=== PATIENT | female | born 1945 | race Caucasian/White ===

== ENCOUNTER 2017-08-13 08:50 | Day surgery (SDC) | payer MEDICARE, OTHER, SELFPAY ==
[2017-08-11 10:26] VITALS: BP 151/76; PULSE 57; RESP 16; TEMP 36.5; O2SAT 99; BMI 22.6
--- NOTE | 2017-08-11 10:45 | SDCEKG_ITS ---
Test Reason : Blood Pressure : / mmHG Vent. Rate : 057 BPM Atrial Rate : 057 BPM P-R Int : 164 ms QRS Dur : 084 ms QT Int : 446 ms P-R-T Axes : 055 047 044 degrees QTc Int : 434 ms Sinus bradycardia Possible Left atrial enlargement Borderline ECG Confirmed by JODI MEEHAN, SAPPHIRE ([id number]), web editor ANGELA MCKEON ([id number]) on 08/12/2017 9:09:19 AM Referred By: Awilda Gamez Confirmed By:SAPPHIRE ZAPATA MD
[2017-08-11 11:52] LABS: Anion Gap 4 (5-15); BUN 16 mg/dL (7-18); BUN/Creat Ratio 22.9 RATIO (10-20); Calcium,Total 8.8 mg/dL (8.5-10.1); Chloride 103 mmol/L (98-107); EST Glomerular Filtration Rate 88 mL/min (>60); Est Glom Filt Rate - Afr Amer 106 mL/min (>60); Estimated Creatinine Clearance 42.06 ml/min; Glucose 95 mg/dL (74-106); Potassium 3.8 mmol/L (3.5-5.1); Sodium Level 139 mmol/L (136-145); Thyroid Stim Hormone (TSH) 1.51 uIU/mL (0.358-3.74)
[2017-08-13] VITALS (9 sets, daily range): BP systolic 97–157; BP diastolic 50–72; PULSE 45–70; RESP 16–18; TEMP 36.1–36.8; O2SAT 91–100; BMI 22.6
--- NOTE | 2017-08-13 | HYST_PTH ---
PATIENT: JAKI VIVAS [place] [facility] [id number] AGE/SX: 72/F ROOM: RE08/13/[address]: Dr. Awilda aGmez MD : [id number] BED: DIS: 08/13/2017 SPEC #: [id number] RECD: 08/13/17 14:43 STATUS: PK REMoshe #: [id number] NADER: 08/13/17 00:[address]: Awilda Gamez DEPT: SURGICAL PATHOLOGY RECD BY: Ant Urban ENTERED: 08/13/17 14:43 SP TYPE: HYSTERECT OTHR DR: MD Dr. Chantal Rao MD Tissues: Uterus, NOS Procedures: Surgery Specimen Level V HEADER OPERATION: Anterior and posterior repair; vaginal hysterectomy, salpingectomy PRE-OP DIAGNOSIS: Mixed incontinence, cystocele and rectocele with incomplete uterovaginal prolapse TISSUE SUBMITTED: Uterus, bilateral fallopian tubes, cervix MICROSCOPIC DIAGNOSIS Uterus, hysterectomy: Cervix ? nabothian cysts and mild chronic inflammation. Endometrium ? inactive endometrium with cystic change. Myometrium ? leiomyoma with hyalinization. Focal adenomyosis. Right and left fallopian tubes ? benign paratubal cyst. AM:amari 08/16/17 MICROSCOPIC DESCRIPTION Slides are reviewed. GROSS DESCRIPTION Received in fixative is one container labeled with the patient's name and designated uterus, bilateral fallopian tubes and cervix. The specimen consists of a hysterectomy specimen consisting of uterus with cervix and detached bilateral fallopian tubes. The uterus with cervix weighs 77 gm and measures 9 x 5.5 x 4 cm. The serosal surface is oneal, glistening. The ectocervical mucosa is unremarkable. The external os is stenotic. The endocervical canal measures 3 cm in length and the endocervical mucosa is unremarkable. The triangular endometrial cavity measures 5 cm in length and up to 4 cm in width. The endometrium is oneal, glistening without any mass lesion and measures 0.1 cm in thickness. Sections of the uterine wall reveal a submucosal to intramural nodular mass measuring 3.5 x 3 x 2.5 cm. Sections of this mass reveals oneal whorled cut surfaces without areas of hemorrhage, necrosis or cystic degeneration. The uninvolved uterine wall measures up to 1.5 cm in thickness. The fallopian tubes are not identified as right or left. One of the fallopian tubes measure 4 cm in length and 0.7 cm in diameter. The second fallopian tube measures 5 cm in length and 0.5 cm in diameter. Fimbrial ends are identified in both fallopian tubes. Sections reveal unremarkable cut surfaces. Tool Turret Lathe Set Up Operator sections are submitted in ten cassettes as follows: 1 - anterior cervix, 2 - posterior cervix, 3 & 4 - anterior uterine wall, 5 & 6 - posterior uterine wall, 7 & 8 ? nodular mass, 9 & 10 ? fallopian tubes, each cassette containing one fallopian tube. / ZHENG:amari 08/13/17 TC:1 CPT: 66591
[2017-08-13] MEDS: Phenazopyridine 95 MG Tablet 190 MG PO (09:24)
--- NOTE | 2017-08-13 09:28 | PCM.HP.STD ---
Problem List (1) Mixed incontinence Status: Acute (2) Cystocele and rectocele with incomplete uterovaginal prolapse Status: Acute History of Present Illness Date of Admission: 08/13/17 The patient is a 72 year old F presents with pelvic organ prolapse, planning a hysterectomy and pelvic floor repair Past Medical History Allergies Penicillins [PCN] Allergy (Verified 01/27/13 11:27) Rash sulfamethoxazole [From Bactrim] Adverse Reaction (Verified 01/27/13 11:27) Vomiting trimethoprim [From Bactrim] Adverse Reaction (Verified 01/27/13 11:27) Vomiting Home Medications: Ambulatory Orders Medication Instructions Recorded Metoprolol(XL)Succ [Toprol Xl 50 mg PO DAILY #30 tablet 01/27/13 (Beta Gabe)] Omeprazole [Prilosec] 20 mg PO DAILY 01/27/13 Raloxifene HCl [Evista] 60 mg PO DAILY 01/27/13 Hydrochlorothiazide 25 mg PO DAILY #30 tablet 02/03/13 Biotin 5 mg PO DAILY 08/11/17 Fexofenadine/Pseudoephedrine 1 each PO DAILY 08/11/17 [Nitza-D 12 Hour Tablet] Finasteride [Proscar] 5 mg PO DAILY 08/11/17 Mometasone/Formoterol [Dulera 100 13 gm IH PRN PRN 08/11/17 Mcg/5 Mcg Inhaler] Psyllium [Metamucil] 1 packet PO DAILY 08/11/17 Smoking Status: Never smoker Tobacco Use: Non-smoker Patient Problems: Active and Suspected Problems Mixed incontinence (Acute) Cystocele and rectocele with incomplete uterovaginal prolapse (Acute) - Physical Exam Vital Signs Temp Pulse Resp BP Pulse Ox 97.7 F L 57 L 16 151/76 H 99 08/11/17 10:26 08/11/17 10:26 08/11/17 10:26 08/11/17 10:26 08/11/17 10:26 Oxygen Delivery Method Room Air Weight: 112 lb 3.445 oz Body Mass Index (BMI) 22.6 Assessment/Plan All Active Problems Mixed incontinence (Acute) Cystocele and rectocele with incomplete uterovaginal prolapse (Acute)
--- NOTE | 2017-08-13 12:34 | PCM.DC.VHY ---
Discharge Activity: Return to Normal Activity, May Not Drive - while taking narcotic pain medications., May Shower May shower in (days): 1 May resume sexual activity in: 6 weeks Weight Bearing Status: Weight bearing as tolerated Call your doctor if your incision/area has: Continuous Slow Oozing, Sudden Increased Bleeding, Increased Pain/ Swelling, Increased Redness, Foul Smelling Discharge Call your doctor if you observe: Fever of 101 or Higher, Inability to urinate, Inability to have a bowel movement, Using more than one pad per hour Allergies/Adverse Reactions: Allergies Penicillins [PCN] Allergy (Verified 01/27/13 11:27) Rash sulfamethoxazole [From Bactrim] Adverse Reaction (Verified 01/27/13 11:27) Vomiting trimethoprim [From Bactrim] Adverse Reaction (Verified 01/27/13 11:) Vomiting Medications to take at Discharge Metoprolol(XL)Succ [Toprol Xl (Beta Gabe)] 50 mg PO DAILY #30 tablet 01/27/13 Omeprazole [Prilosec] 20 mg PO DAILY 01/27/13 Raloxifene HCl [Evista] 60 mg PO DAILY 01/27/13 Hydrochlorothiazide 25 mg PO DAILY #30 tablet 02/03/13 Biotin 5 mg PO DAILY 08/11/17 Fexofenadine/Pseudoephedrine [Nitza-D 12 Hour Tablet] 1 each PO DAILY 08/11/17 Finasteride [Proscar] 5 mg PO DAILY 08/11/17 Mometasone/Formoterol [Dulera 100 Mcg/5 Mcg Inhaler] 13 gm IH PRN PRN 08/11/17 Psyllium [Metamucil] 1 packet PO DAILY 08/11/17 Primary Care Physician: Zen Mitchell MD [Primary Care Provider] - Please Follow Up With: Awilda Gamez MD When: 6 weeks Proposed Discharge Date: 08/13/17
--- NOTE | 2017-08-13 12:37 | PCM.OPRPT ---
Problem List (1) Mixed incontinence Status: Acute (2) Cystocele and rectocele with incomplete uterovaginal prolapse Status: Acute Report of Operation Date of Procedure: 08/13/17 Pre-Operative Diagnosis: Uterovaginal prolapse, stress incontinence Post-Operative Diagnosis: same Surgery/Procedure Performed:: Total vaginal hysterectomy, bilateral salpingectomy, uterosacral ligament suspension, anterior and posterior repair, midurethral sling and cystoscopy. Description of Surgical Findings:: The patient was taken to the operating room where general anesthesia was initiated. The patient was placed in dorsal lithotomy position and prepped and draped in sterile fashion. A surgical timeout occurred. A fink catheter was placed in the patient's bladder. (Performed by Dr. Chantal Galaviz) A weighted speculum was placed in the patient's vagina. A curved [place] was used to retract the anterior vaginal wall and bladder out of the field. The cervix was grasped with two Mack traction forceps. The cervix was then injected with 0.25% marcaine mixed with epinephrine. A circumferential incision with a 10 blade scalpel was then made incising the vagina mucosa down to the body of the cervix. The posterior vaginal epithelium was then dissected off the cervix until the peritoneum of the pouch of [place] was reached. This was then grasped and cut with Herring scissors entering the peritoneal cavity. A long weighted speculum was then placed in the posterior cul-de-sac. Attention was then turned to the anterior vaginal wall epithelium which was grasped with pickups and dissected, along with the bladder, off of the cervix and the uterus until the peritoneal reflection was visualized. This was then grasped with pickups and incised with Metzenbaum scissors, entering the peritoneal cavity anteriorly. The fink bulb was palpated to confirm that the bladder was not perforated. The Melissa was then used to retract the bladder out of the operative field. A curved Rubi clamp was then used to clamp, cut and suture ligate the uterosacral ligament on the patient's left side. This was repeated on the contralateral side. Next, the vessels of the broad ligament including the uterine vessels were clamped, cut and suture ligated bilaterally. Finally, the utero-ovarian ligament was clamped cut and suture ligated; first with a tie on a passer and then with a Rubi stitch. The uterus and cervix were passed off the sterile field and sent to pathology. A bilateral salpingectomy was performed by grasping the fallopian tubes with a rajani clamp and excising them with bovie electrocautery. Both tubes were normal in appearance and sent to pathology. With two Breisky Navratil retractors placed anteriorly and posteriorly in the vagina, the bowel was packed out of the cul-de-sac using a moist Kerlex sponge. A 0-Maxon with an HGU-46 needle on a long needle chassis driver was passed through the uterosacral ligament on the patients right side. This was followed by a 2-0 prolene suture using an SH needle. This was repeated on the contralateral side. The instruments and packing were removed from the vagina. The patient was given 5 mg of Lasix IV and 5 cc of Indigo [place]. Cystoscopy was then performed while holding tension on the uterosacral ligament suspensions sutures. Bilateral efflux of blue urine was seen from ureteral orifices. The vaginal epithelium overlying the anterior vaginal wall was grasped with two Allis clamps, injected with 0.25% Marcaine with epinephrine and a midline incision was made over the herniation of the anterior vaginal wall. The underlying pubocervical fascia was dissected off the overlying vaginal epithelium until the herniation of the pubocervical fascia was completely exposed. Hemostasis was achieved with electrosurgical cautery. The herniation was repaired in the traditional fashion using imbricating horizontal mattress sutures of 2-O PDS on a CT-1 needle. Once the herniation was completely repaired, the redundant vaginal epithelium was excised and the incision was closed with a running, locking 3-O vicryl suture. Excellent hemostasis was noted. The vaginal epithelium overlying the mid-urethra was grasped with two Allis clamps, injected with 0.25% Marcaine with epinephrine and a 1.5 cm midline incision was made over the mid urethra using a 15 blade scalpel. Tunnels were dissected bilaterally to the pubic rami and the Patria desera trocars were passed through the tunnels on the right side, through the space of Retzius and out the skin at at the pubic symphysis. This was repeated on the patient's left side. Cystoscopy was performed and there was no evidence of bladder or urethral injury. The sling was then drawn up through the space of Retzius and out the skin at the pubic symphysis. Tension was adjusted by placing a Wangensteen forceps between the sling and the urethra. Once adequate tension was adjusted, the plastic sheaths were removed. The redundant sling was trimmed at the skin edges and the skin was repaired with Indermil. The sutures were then bought through the corners of the vaginal cuff. The cuff was closed with interrupted 0-vicryl sutures. The uterosacral ligament sutures were then tied, elevating the vaginal vault. A self-retaining retractor was used to retract the labia and vagina for adequate visualization and exposure. The vaginal epithelium overlying the posterior vaginal wall was grasped with two Allis clamps, injected with 0.25% Marcaine with epinephrine and a midline incision was made over the herniation of the posterior vaginal wall. The underlying rectovaginal fascia was dissected off the overlying vaginal epithelium until the herniation of the rectovaginal fascia was completely exposed. Hemostasis was achieved with electrosurgical cautery. With placement of a rectal finger, the herniation was repaired in the traditional fashion using imbricating horizontal mattress sutures of 2-O PDS on a CT-1 needle. Once the herniation was completely repaired, the redundant vaginal epithelium was excised and the incision was closed with a running, locking 3-O vicryl suture. Excellent hemostasis was noted. The vagina was packed with Kerlex gauze soaked in estrogen cream. Anesthesia was discontinued. All needle, instrument, and sponge counts were correct x 2. The patient was taken to recovery room in stable condition draining clear urine from her fink catheter. manager organizational: None manager organizational: Chantal Galaviz manager organizational: Holli Garcia Type of Anesthesia:: General Anesthesiologist: Michele Jean Special Medications: 1% lidocaine with epi Specimen's removed: uterus, cervix, bilateral fallopian tubes Drains: Fink to PACU Estimated Blood Loss (mL): 50 ML Grafts/Implants Used: Patria Desera sling - Complications None - Admit VTE Documentation VTE Present on Admission: Yes VTE Mechan Device Prophylaxis: SCD's VTE Pharm Prophylaxis ordered?: No Reason prophylaxis not ordered:: Treatment Not Indicated
--- NOTE | 2017-08-13 12:44 | OP.PCM_ITS ---
Problem List (1) Mixed incontinence Status: Acute (2) Cystocele and rectocele with incomplete uterovaginal prolapse Status: Acute Report of Operation Date of Procedure: 08/13/17 Pre-Operative Diagnosis: Uterovaginal prolapse, stress incontinence Post-Operative Diagnosis: same Surgery/Procedure Performed:: Total vaginal hysterectomy, bilateral salpingectomy, uterosacral ligament suspension, anterior and posterior repair, midurethral sling and cystoscopy. Description of Surgical Findings:: The patient was taken to the operating room where general anesthesia was initiated. The patient was placed in dorsal lithotomy position and prepped and draped in sterile fashion. A surgical timeout occurred. A fink catheter was placed in the patient's bladder. (Performed by Dr. Chantal Galaviz) A weighted speculum was placed in the patient's vagina. A curved [place] was used to retract the anterior vaginal wall and bladder out of the field. The cervix was grasped with two Mack traction forceps. The cervix was then injected with 0.25% marcaine mixed with epinephrine. A circumferential incision with a 10 blade scalpel was then made incising the vagina mucosa down to the body of the cervix. The posterior vaginal epithelium was then dissected off the cervix until the peritoneum of the pouch of Tapan was reached. This was then grasped and cut with Herring scissors entering the peritoneal cavity. A long weighted speculum was then placed in the posterior cul-de-sac. Attention was then turned to the anterior vaginal wall epithelium which was grasped with pickups and dissected, along with the bladder, off of the cervix and the uterus until the peritoneal reflection was visualized. This was then grasped with pickups and incised with Metzenbaum scissors, entering the peritoneal cavity anteriorly. The fink bulb was palpated to confirm that the bladder was not perforated. The Melissa was then used to retract the bladder out of the operative field. A curved Rubi clamp was then used to clamp, cut and suture ligate the uterosacral ligament on the patient's left side. This was repeated on the contralateral side. Next, the vessels of the broad ligament including the uterine vessels were clamped, cut and suture ligated bilaterally. Finally, the utero-ovarian ligament was clamped cut and suture ligated; first with a tie on a passer and then with a Rubi stitch. The uterus and cervix were passed off the sterile field and sent to pathology. A bilateral salpingectomy was performed by grasping the fallopian tubes with a rajani clamp and excising them with bovie electrocautery. Both tubes were normal in appearance and sent to pathology. With two Breisky Navratil retractors placed anteriorly and posteriorly in the vagina, the bowel was packed out of the cul-de-sac using a moist Kerlex sponge. A 0-Maxon with an HGU-46 needle on a long needle dinkey driver was passed through the uterosacral ligament on the patients right side. This was followed by a 2- 0 prolene suture using an SH needle. This was repeated on the contralateral side. The instruments and packing were removed from the vagina. The patient was given 5 mg of Lasix IV and 5 cc of Indigo [place]. Cystoscopy was then performed while holding tension on the uterosacral ligament suspensions sutures. Bilateral efflux of blue urine was seen from ureteral orifices. The vaginal epithelium overlying the anterior vaginal wall was grasped with two Allis clamps, injected with 0.25% Marcaine with epinephrine and a midline incision was made over the herniation of the anterior vaginal wall. The underlying pubocervical fascia was dissected off the overlying vaginal epithelium until the herniation of the pubocervical fascia was completely exposed. Hemostasis was achieved with electrosurgical cautery. The herniation was repaired in the traditional fashion using imbricating horizontal mattress sutures of 2-O PDS on a CT-1 needle. Once the herniation was completely repaired, the redundant vaginal epithelium was excised and the incision was closed with a running, locking 3-O vicryl suture. Excellent hemostasis was noted. The vaginal epithelium overlying the mid-urethra was grasped with two Allis clamps, injected with 0.25% Marcaine with epinephrine and a 1.5 cm midline incision was made over the mid urethra using a 15 blade scalpel. Tunnels were dissected bilaterally to the pubic rami and the Patria desera trocars were passed through the tunnels on the right side, through the space of Retzius and out the skin at at the pubic symphysis. This was repeated on the patient's left side. Cystoscopy was performed and there was no evidence of bladder or urethral injury. The sling was then drawn up through the space of Retzius and out the skin at the pubic symphysis. Tension was adjusted by placing a Wangensteen forceps between the sling and the urethra. Once adequate tension was adjusted, the plastic sheaths were removed. The redundant sling was trimmed at the skin edges and the skin was repaired with Indermil. The sutures were then bought through the corners of the vaginal cuff. The cuff was closed with interrupted 0-vicryl sutures. The uterosacral ligament sutures were then tied, elevating the vaginal vault. A self-retaining retractor was used to retract the labia and vagina for adequate visualization and exposure. The vaginal epithelium overlying the posterior vaginal wall was grasped with two Allis clamps, injected with 0.25% Marcaine with epinephrine and a midline incision was made over the herniation of the posterior vaginal wall. The underlying rectovaginal fascia was dissected off the overlying vaginal epithelium until the herniation of the rectovaginal fascia was completely exposed. Hemostasis was achieved with electrosurgical cautery. With placement of a rectal finger, the herniation was repaired in the traditional fashion using imbricating horizontal mattress sutures of 2-O PDS on a CT-1 needle. Once the herniation was completely repaired, the redundant vaginal epithelium was excised and the incision was closed with a running, locking 3-O vicryl suture. Excellent hemostasis was noted. The vagina was packed with Kerlex gauze soaked in estrogen cream. Anesthesia was discontinued. All needle, instrument, and sponge counts were correct x 2. The patient was taken to recovery room in stable condition draining clear urine from her fink catheter. silk screen painter: None silk screen painter: Chantal Galaviz silk screen painter: Holli Garcia Type of Anesthesia:: General Anesthesiologist: Michele Jean Special Medications: 1% lidocaine with epi Specimen's removed: uterus, cervix, bilateral fallopian tubes Drains: Fink to PACU Estimated Blood Loss (mL): 50 ML Grafts/Implants Used: Patria Desera sling - Complications None - Admit VTE Documentation VTE Present on Admission: Yes VTE Mechan Device Prophylaxis: SCD's VTE Pharm Prophylaxis ordered?: No Reason prophylaxis not ordered:: Treatment Not Indicated
--- NOTE | 2017-08-13 17:56 | SUR.PHASEII ---
fc inserted without difficulty drained 600 cc. pt arnav well- aware to call office on wednesday for appt wednesday
--- NOTE | 2017-08-14 01:57 | PCM.OPRPT ---
Problem List (1) Mixed incontinence Status: Acute (2) Cystocele and rectocele with incomplete uterovaginal prolapse Status: Acute Report of Operation Date of Procedure: 08/13/17 Pre-Operative Diagnosis: Uterovaginal prolapse, stress incontinence Post-Operative Diagnosis: same Surgery/Procedure Performed:: Total vaginal hysterectomy, bilateral salpingectomy, uterosacral ligament suspension, anterior and posterior repair, midurethral sling and cystoscopy. global process owner: Chantal Galaviz global process owner: Holli Garcia Type of Anesthesia:: General Anesthesiologist: Michele Jean Special Medications: 1% lidocaine with epi Specimen's removed: uterus, cervix, bilateral fallopian tubes Drains: Balder[place] to PACU Estimated Blood Loss (mL): 50 ML Fluids Replaced: crystalloid Description of Procedure: Patient was taken to the operating room and was placed under general anesthesia was prepped and draped in normal sterile fashion in the dorsal lithotomy position. Preoperative antibiotics and SCDs and Balderas catheter was placed inside the bladder. Weighted speculum was placed in the vagina and the anterior and posterior lip of the cervix was grasped with 2 Mack clamps and circumferentially injected with dilute vasopressin. A circumferential incision was made with a scalpel and the posterior cul-de-sac was entered into sharply and a longneck speculum was placed. The anterior cul-de-sac was also dissected down and entered into sharply and the uterosacral ligaments were clamped cut and suture ligated bilaterally followed by the cardinal ligaments which were Clamped cut and suture ligated bilaterally with 0 Monocryl. The uterus serially descended and progressive bites were taken bilaterally up to the level of the utero-ovarian ligament bilaterally which was clamped transected and double ligated with 0 Monocryl suture and 0 Vicryl free tie. Bilateral fallopian tubes and ovaries were well visualized and noted be within normal limits and the bilateral fallopian tubes were transected across the base with the bovie and removed. Excellent hemostasis was noted. Dr Gamez performed the US ligament fixation and anterior repair and then The vagina was closed with [id number] 0 Vicryl pop offs. Excellent hemostasis was noted. The rest of Dr Gamez's procedures were performed and All instruments removed from the vagina clear urine was noted at the end of the procedure and patient was awoken and taken recovery in stable condition. Grafts/Implants Used: none - Complications none - Admit VTE Documentation VTE Present on Admission: No VTE Mechan Device Prophylaxis: SCD's
--- NOTE | 2017-08-14 02:11 | OP.PCM_ITS ---
Problem List (1) Mixed incontinence Status: Acute (2) Cystocele and rectocele with incomplete uterovaginal prolapse Status: Acute Report of Operation Date of Procedure: 08/13/17 Pre-Operative Diagnosis: Uterovaginal prolapse, stress incontinence Post-Operative Diagnosis: same Surgery/Procedure Performed:: Total vaginal hysterectomy, bilateral salpingectomy, uterosacral ligament suspension, anterior and posterior repair, midurethral sling and cystoscopy. bridge contractor: Chantal Galaviz bridge contractor: Holli Garcia Type of Anesthesia:: General Anesthesiologist: Michele Jean Special Medications: 1% lidocaine with epi Specimen's removed: uterus, cervix, bilateral fallopian tubes Drains: Balderas to PACU Estimated Blood Loss (mL): 50 ML Fluids Replaced: crystalloid Description of Procedure: Patient was taken to the operating room and was placed under general anesthesia was prepped and draped in normal sterile fashion in the dorsal lithotomy position. Preoperative antibiotics and SCDs and Balderas catheter was placed inside the bladder. Weighted speculum was placed in the vagina and the anterior and posterior lip of the cervix was grasped with 2 Mack clamps and circumferentially injected with dilute vasopressin. A circumferential incision was made with a scalpel and the posterior cul-de-sac was entered into sharply and a longneck speculum was placed. The anterior cul-de-sac was also dissected down and entered into sharply and the uterosacral ligaments were clamped cut and suture ligated bilaterally followed by the cardinal ligaments which were Clamped cut and suture ligated bilaterally with 0 Monocryl. The uterus serially descended and progressive bites were taken bilaterally up to the level of the utero-ovarian ligament bilaterally which was clamped transected and double ligated with 0 Monocryl suture and 0 Vicryl free tie. Bilateral fallopian tubes and ovaries were well visualized and noted be within normal limits and the bilateral fallopian tubes were transected across the base with the bovie and removed. Excellent hemostasis was noted. Dr Gamez performed the US ligament fixation and anterior repair and then The vagina was closed with [id number] 0 Vicryl pop offs. Excellent hemostasis was noted. The rest of Dr Gamez's procedures were performed and All instruments removed from the vagina clear urine was noted at the end of the procedure and patient was awoken and taken recovery in stable condition. Grafts/Implants Used: none - Complications none - Admit VTE Documentation VTE Present on Admission: No VTE Mechan Device Prophylaxis: SCD's
== END 2017-08-13 18:00 | disposition home or self-care (01) ==
LOC: SDC 08:51 → AC 08-18 11:07
PROVIDERS: Anesthesiology; Obstetrics & Gynecology; Family Provider Family Medicine; PCP Family Medicine; Visit Provider Obstetrics & Gynecology
PROC: (CPT 57260; principal; 2017-08-13 10:10)
PROC: (CPT 58260; 2017-08-13 10:10)
DX: N81.2 Incomplete uterovaginal prolapse (principal); N39.46 Mixed incontinence; N80.0 Endometriosis of uterus; D26.1 Other benign neoplasm of corpus uteri; N72 Inflammatory disease of cervix uteri; N88.8 Other specified noninflammatory disorders of cervix uteri; N83.8 Other noninflammatory disorders of ovary, fallopian tube and broad ligament; I10 Essential (primary) hypertension; K21.9 Gastro-esophageal reflux disease without esophagitis; Z79.899 Other long term (current) drug therapy; Z78.0 Asymptomatic menopausal state; Z90.710 Acquired absence of both cervix and uterus
CPT/HCPCS: 57260; 57288; 58262; 80048; 84443; 88307; 93005; J7120; C1771; J0330; J2405

== ENCOUNTER 2017-09-02 20:03 | Emergency (ER) | payer MEDICARE, OTHER, SELFPAY ==
[2017-09-02 20:06] VITALS: BP 159/68; PULSE 72; RESP 18; TEMP 36.8; O2SAT 98; BMI 21.3
[2017-09-02] MEDS: FERRIC SUBSULFATE 8 GM SOLN 16 GM TOPICAL (21:29)
[2017-09-02] MEDS: Estrogens,Conj. 1 Tube 1 DOSE VAGINAL (21:30)
--- NOTE | 2017-09-02 21:33 | ED.RN ---
PT HERE FOR VAGINAL BLEEDING, RECENT HYSTERECTOMY AND PROLAPSE REPAIR. DR MONTANA IN TO EXAMINE AND PROVIDE CARE FOR PT. THIS RN ASSISTED WITH VAGINAL EXAM, WOUND CARE AND ALL MEDICATION ADMINISTRATION PROVIDED BY DR MONTANA. DISCHARGE INSTRUCTION GIVEN BY DR MONTANA, PT AND SPOUSE VOICE UNDERSTANDING. NO CARE PROVIDED BY ED MD. PT DISCHARGED HOME WITH SPOUSE, AMBULATED OUT OF DEPARTMENT WITHOUT DIFFICULTY.
[2017-09-02 21:48] VITALS: BP 138/74; PULSE 69; RESP 14; O2SAT 98
--- NOTE | 2017-09-04 08:30 | OB.TRI.NOTE ---
- Problem List (1) Postoperative vaginal bleeding following genitourinary procedure Status: Acute (2) Mixed incontinence Status: Acute (3) Cystocele and rectocele with incomplete uterovaginal prolapse Status: Acute History of Present Illness Date of Service: 09/02/17 Was patient seen by the physician?: Yes Reason For Visit: POST OP VAGINAL BLEEDING Date of Service: 09/02/17 History of Present Illness: 72 yo presents 3 weeks postop from a TVH AP repair with acute onset heavy vaginal bleeding passing clots. she states she felt the bleeding started after a bowel movement today and she has passed large clots and had to change a pad at less than an hour. she denies signifciant pain and denies other complaints. she has been self cathing after voiding for elevated PVR post surgery with no issues. Allergies Penicillins [PCN] Allergy (Verified 09/03/17 09:07) Rash sulfamethoxazole [From Bactrim] Adverse Reaction (Verified 09/03/17 09:07) Vomiting trimethoprim [From Bactrim] Adverse Reaction (Verified 09/03/17 09:07) Vomiting - Pertinent Past Medical History Medical History: Past Medical History (Last Updated 09/03/17 @ 09:10 by Ibis Phipps) Seasonal allergies Hypertension Surgical History: Past Surgical History (Last Updated 09/03/17 @ 09:10 by Ibis Phipps) H/O dilation and curettage History of [facility] History of tonsillectomy trigger finger surgery Physical Exam Vitals: Vital Signs Temp Pulse Resp BP Pulse Ox 98.2 F 69 14 138/74 H 98 09/02/17 20:06 09/02/17 21:48 09/02/17 21:48 09/02/17 21:48 09/02/17 21:48 General: Alert, Cooperative, No apparent distress HEENT: Atraumatic, Normocephalic. Negative for: Thyromegaly, Lymphadenopathy Cardiovascular: Regular rate Lungs: Normal air movement Abdomen: Soft, Non Tender, Gravid Neurological: Deep Tendon Reflexes 2+/4 and Symmetrical, Neuro grossly intact. 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 Negative for: Vulvar lesions Impression/Plan 72 yo S/P TVH with postop bleeding patient seen in ER- anterior bleeding site identified and monsel's paste used for hemostasis, vaginal packing soaked in premarin cream placed without difficulty. patient will continue to cath PRN, fu in office tomorrow for packing removal.
--- NOTE | 2017-09-04 08:34 | OB.TRI.HP_ITS ---
- Problem List (1) Postoperative vaginal bleeding following genitourinary procedure Status: Acute (2) Mixed incontinence Status: Acute (3) Cystocele and rectocele with incomplete uterovaginal prolapse Status: Acute History of Present Illness Date of Service: 09/02/17 Was patient seen by the physician?: Yes Reason For Visit: POST OP VAGINAL BLEEDING Date of Service: 09/02/17 History of Present Illness: 72 yo presents 3 weeks postop from a TVH AP repair with acute onset heavy vaginal bleeding passing clots. she states she felt the bleeding started after a bowel movement today and she has passed large clots and had to change a pad at less than an hour. she denies signifciant pain and denies other complaints. she has been self cathing after voiding for elevated PVR post surgery with no issues. Allergies Penicillins [PCN] Allergy (Verified 09/03/17 09:07) Rash sulfamethoxazole [From Bactrim] Adverse Reaction (Verified 09/03/17 09:07) Vomiting trimethoprim [From Bactrim] Adverse Reaction (Verified 09/03/17 09:07) Vomiting - Pertinent Past Medical History Medical History: Past Medical History (Last Updated 09/03/17 @ 09:10 by Ibis Phipps) Seasonal allergies Hypertension Surgical History: Past Surgical History (Last Updated 09/03/17 @ 09:10 by Ibis Phipps) H/O dilation and curettage History of [facility] History of tonsillectomy trigger finger surgery Physical Exam Vitals: Vital Signs Temp Pulse Resp BP Pulse Ox 98.2 F 69 14 138/74 H 98 09/02/17 20:06 09/02/17 21:48 09/02/17 21:48 09/02/17 21:48 09/02/17 21:48 General: Alert, Cooperative, No apparent distress HEENT: Atraumatic, Normocephalic. Negative for: Thyromegaly, Lymphadenopathy Cardiovascular: Regular rate Lungs: Normal air movement Abdomen: Soft, Non Tender, Gravid Neurological: Deep Tendon Reflexes 2+/4 and Symmetrical, Neuro grossly intact. 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 Negative for: Vulvar lesions Impression/Plan 72 yo S/P TVH with postop bleeding patient seen in ER- anterior bleeding site identified and monsel's paste used for hemostasis, vaginal packing soaked in premarin cream placed without difficulty. patient will continue to cath PRN, fu in office tomorrow for packing removal.
== END 2017-09-02 21:49 | disposition home or self-care (01) ==
LOC: ED 21:33
PROVIDERS: Emergency Provider Obstetrics & Gynecology; Family Provider Family Medicine; PCP Family Medicine
DX: N99.820 Postprocedural hemorrhage of a genitourinary system organ or structure following a genitourinary system procedure (principal); N39.46 Mixed incontinence; N81.2 Incomplete uterovaginal prolapse; I10 Essential (primary) hypertension; Z79.899 Other long term (current) drug therapy; Z90.710 Acquired absence of both cervix and uterus
CPT/HCPCS: 57180; 99282

== ENCOUNTER → 2018-01-07 08:59 | Outpatient (CLI) | payer MEDICARE, OTHER, SELFPAY ==
--- NOTE | 2018-01-07 09:01 | BI_ITS ---
MAMMOGRAPHY - BILATERAL SCREENING REASON FOR EXAM: Female, 72 years old. Routine annual screening examination. PERTINENT HISTORY: Grandmother with breast cancer. TECHNIQUE: Digital bilateral breast liliana (3D mammographic acquisition) in the CC and MLO projections. 2-D mediolateral oblique (MLO) and craniocaudad (CC) views of both breasts were obtained. CAD: Full Field Digital Mammography with Computer Added Detection was performed. COMPARISON: Comparison is made with prior study dated February 02, 2017 and February 05, 2016. FINDINGS: Breast Composition: The breasts are extremely dense, which lowers the sensitivity of mammography. There are no dominant masses or suspicious calcifications. No other significant abnormalities are identified. There has been no significant change since the prior study. BI/SCREENING MAMM (CAD), BILAT IMPRESSION: Stable bilateral screening mammogram. Yearly follow-up mammogram recommended. (A) ASSESSMENT CATEGORY: BIRADS Category 1: Negative. A letter regarding these results will be sent to the patient by the facility within 30 days. Approximately 10% of breast cancers are not detected by mammography. A normal mammogram should not delay biopsy of a clinically suspicious abnormality. [id number] Electronically Signed: Camron Parks MD at 9:22 EST Tel [phone], Service support ,
== END ==
PROVIDERS: Family Provider Family Medicine; PCP Family Medicine; Referring Provider Obstetrics & Gynecology; Visit Provider Obstetrics & Gynecology
DX: Z12.31 Encounter for screening mammogram for malignant neoplasm of breast (principal)
CPT/HCPCS: 77063; 77067

== ENCOUNTER → 2018-01-20 09:46 | Outpatient (CLI) | payer MEDICARE, OTHER, SELFPAY ==
--- NOTE | 2018-01-20 09:53 | CDU_ITS ---
Reason For Study: Impairment of balance Rt. Velocities/BP Lt. Velocities/BP Prox CCA 68.6/17.0 cm/sec. Prox CCA 63.9/19.9 cm/sec. Mid CCA 65.1/15.2 cm/sec. Mid CCA 61.6/17.0 cm/sec. Dist CCA 63.9/17.0 cm/sec. Dist CCA 56.9/19.3 cm/sec. Prox ICA 62.1/20.5 cm/sec. Prox ICA 66.3/27.0 cm/sec. Mid ICA 100.0/32.5 cm/sec. Mid ICA 64.5/18.0 cm/sec. Dist ICA 52.4/18.2 cm/sec. Dist ICA 62.0/16.2 cm/sec. Rt. ICA/CCA = 1.5. Lt. ICA/CCA = 1.1. Prox ECA 69.2/12.3 cm/sec. Prox ECA 80.9/10.6 cm/sec. Rt. Vert. 39.9/11.7 cm/sec. Lt. Vert. 45.7/12.9 cm/sec. Right Extracranial There is intimal thickening but no significant atherosclerotic plaque noted in the right common carotid artery. There is intimal thickening but no significant atherosclerotic plaque noted in the right internal carotid artery. There is no significant atherosclerotic plaque noted in the right external carotid artery. Antegrade flow is noted in the right vertebral artery. Left Extracranial There is intimal thickening but no significant atherosclerotic plaque noted in the left common carotid artery. There is intimal thickening but no significant atherosclerotic plaque noted in the left internal carotid artery. There is intimal thickening but no significant atherosclerotic plaque noted in the left external carotid artery. Antegrade flow is noted in the left vertebral artery. Procedure Carotid Duplex [id number]. Exam performed in department. Interpretation Summary No significant atherosclerotic plaque or stenosis noted in the internal carotid arteries bilaterally. Flow within the vertebral arteries is antegrade bilaterally. Ordering Physician: Zen Mitchell Referring Physician: Zen Mitchell Performed By: Kadie Avila RVT
--- OUTSIDE RECORDS SUMMARY | 2018-03-17 11:21 | XMS RPT_ITS ---
:1945 Author Organization OHIP Care Team Providers Name Role Phone FrancoAwilda Attending Unavailable PROVIDER, UNKNOWN Referring Unavailable Marsha Mckeon Primary Care Unavailable Awilda Gamez Attending Unavailable Marsha Mckeon Primary Care Unavailable FrancoAwilda Referring Unavailable Chantal Galaviz Consulting Unavailable Chantal Galaviz Attending Unavailable Awilda Gamez Referring Unavailable Marsha Mckeon Primary Care Unavailable Chantal Galaviz Consulting Unavailable Awilda Gamez Consulting Unavailable Marsha Mckeon Primary Care Unavailable Chantal Galaviz Attending Unavailable Marcanthony, Chantal Attending Unavailable Mckeon, Marsha Referring Unavailable Mckeon, Marsha Primary Care Unavailable Marcanthony, Chantal Attending Unavailable Mckeon, Marsha Primary Care Unavailable Lashon, [place] Attending Unavailable Awilda Gamez Referring Unavailable Marcanthony, Chantal Attending Unavailable Marcanthony, Chantal Referring Unavailable Mckeon, Marsha Primary Care Unavailable Mckeon, Marsha Attending Unavailable Mckeon, Marsha Referring Unavailable Mckeon, Marsha Primary Care Unavailable Mckeon, Marsha Attending Unavailable Mckeon, Marsha Referring Unavailable Mckeon, Marsha Primary Care Unavailable Marcanthony, Chantal Attending Unavailable Mckeon, Marsha Referring Unavailable PROBLEMS PROBLEMS DATE TYPE CONDITION / CODE ATTENDING STATUS SOURCE 01/31/2018 Unknown N39.46 - Mixed Marcanthony, Active [place] incontinence / [facility] N39.46(ICD-10) Hospital Repository 01/31/2018 Unknown Z01.411 - Encounter Marcanthony, Active [place] for gynecological [facility] (general) (routine) Repository with abnormal findings / Z01.411(ICD-10) 01/31/2018 Unknown T83.711A - Erosion Marcanthony, Active [place] of implanted [facility] vaginal mesh to Hospital surrounding organ Repository or tissue, initial encounter / T83.711A(ICD-10) 01/20/2018 Unknown Z12.31 - Encounter Marcanthony, Active [place] for screening [facility] mammogram for Hospital malignant neoplasm Repository of breast / Z12.31(ICD-10) 11/04/2017 Unknown N81.2 - Incomplete Franco Awilda Active [place] uterovaginal [facility] prolapse / Hospital N81.2(ICD-10) Repository 09/24/2017 Unknown R00.1 - Lashon, [place] Active [place]ak Bradycardia, [facility] unspecified / Hospital R00.1(ICD-10) Repository PROCEDURES PROCEDURES No Procedure Records FoundRESULTS RESULTS CASE WORKER OFFICE VISIT Observed: 01/31/2018 Status: F Source: [place] REPORT 9:15 AM [facility] REPOSITORY [facility] [address] [place] [address]. [address] [place] [address] OFFICE VISIT Date of Service: 01/31/18 MR#: [id number] Acct: [id number] Name: LINDA DURANT Rep #: [id number] : 1945 Provider: Chantal Galaviz MD Age/Sex: 72/F Location: [facility] Status: Signed Intake Vital Signs01/31/18 Height 4 ft 11 in 01/31/18 Weight: 108 lb 4 oz 01/31/18 Body Mass Index (BMI) 21.8 01/31/18 Blood Pressure 118/72 Intake Visit Reasons: ANNUAL Engine Cleaner Required: No Is patient in pain?: No Allergies Penicillins [PCN] Allergy (Verified 01/31/18 08:24) Rash sulfamethoxazole [From Bactrim] Adverse Reaction (Verified 01/31/18 08:24) Vomiting trimethoprim [From Bactrim] Adverse Reaction (Verified 01/31/18 08:24) Vomiting Medications Hydrochlorothiazide 25 mg PO DAILY #30 tab 02/03/13 [Rx Confirmed 01/31/18] Biotin 5 mg PO DAILY 08/11/17 [History Confirmed 01/31/18] Finasteride [Proscar] 5 mg PO DAILY 08/11/17 [History Confirmed 01/31/18] Psyllium [Metamucil] 1 packet PO DAILY 08/11/17 [History Confirmed 01/31/18] esomeprazole magnesium 20 mg capsule,delayed release 20 mg PO QDAY 09/03/17 [History Confirmed 01/31/18] metoprolol succinate ER 50 mg tablet,extended release 24 hr 50 mg PO DAILY #30 tab 10/18/17 [Rx Confirmed 01/31/18] raloxifene 60 mg tablet 60 mg PO DAILY #90 tab 11/29/17 [Rx Confirmed 01/31/18] Is last menstrual period known: No Post menopausal: No Patient : No : No PFSH Medical History Seasonal allergies (Acute) Hypertension (Chronic) Surgical History H/O: hysterectomy (Acute) H/O dilation and curettage (Acute) History of LAVH (Acute) History of tonsillectomy (Acute) trigger finger surgery (Acute) Family History Father Myocardial infarction Mother Diabetes Social History Smoking Status: Never smoker alcohol intake: current details: social substance use type: does not use caffeine: Yes what type of physical activity do you participate in: walking seatbelt use: always do you feel safe at home: Yes additional social history: Quentin- Both are Retired Pregancy History 3 Elective abortions Hx Para 3 Spontaneous abortions Past Pregnancies Del. DatName GA/WeeksOutcome Route Bt Klever Grover LgAnesthesDel LocaProviderFOB e ht en tn Unknown 1974 Arnel l Unknown 1977 Jayson h Unknown 1980 [facility] HPI ANNUAL: Details: LINDA DURANT is a 72 year old who presents for annual exam. pelvic floor strength increasing with PT. Last PAP: na History of abnormal PAP: leep in Last mammogram: 01/09 History of abnormal mammogram: no Colon cancer screenin years ago Other preventative health care screenings: pcp is dr marsha mckeon Female Reproductive History Menopausal Symptoms: No hot flashes, No night sweats, No weight change, No mood changes, No difficulty concentrating, No sleep problems, No change in libido ROS Const Constitutional: Denies night sweats Cardio Card: Denies chest pain Resp Resp: Denies dyspnea or cough GI GI: Reports as per HPI; denies bloating, abdominal pain, constipation, vomiting or nausea : Reports as per HPI; denies hot flashes or nipple discharge Skin Skin/Breast: Denies breast pain, breast skin changes, nipple discharge, breast lump or changing lesions Psych Psych: Denies difficulty concentrating or change in sex drive Exam Const General: cooperative, healthy appearing, comfortable, no acute distress, well developed, well groomed [facility] Head: normal to inspection, normocephalic Ears: hearing grossly normal bilaterally, external ears normal Nose: external nose normal Face and sinus: normal facial exam Neck Neck: normal visual inspection, full ROM, no lymphadenopathy Thyroid: thyroid normal Chest Chest palpation AND inspection: normal inspection of the chest Breast inspection: normal inspection of the breasts, normal inspection of the axillae Breast palpation: normal palpation of the breasts, normal palpation of the axillae, no axillary lymphadenopathy Resp Effort AND Inspection: normal respiratory effort GI Inspection: normal to inspection, non-distended Palpation: no guarding, soft, no hepatosplenomegaly General: bladder normal to palpation External Female Exam: normal external appearance, normal appearance of the urethra, no lesions Urethra: normal appearance of the urethra, palpation abnormal (small area mesh erosion under urethra) Speculum Exam - Vagina: normal appearance of the vagina, normal vaginal discharge Bimanual Exam- Vagina AND Uterus: bladder normal to palpation Bimanual Exam- Adnexa, other: normal adnexae, no adnexal masses, adnexae non-tender Skin General: no rashes or lesions noted Neuro General: alert, moves all extremities, no focal motor deficits Extrem General: no pedal edema, normal to inspection Psych Appearance: grossly normal Mental Status: mental status grossly normal Affect: normal affect Speech and Movement: speech and movement normal Attitude: cooperative Assessment AND Plan Problems 1. Mixed incontinence N39.46 s/p surgery, pelvic floor PT 2. Encounter for gynecological examination with abnormal finding Z01.411 3. Erosion of vaginal mesh, initial encounter T83.711A vaginal estrogen and fu with urogyn Plan Cervical cancer screening: na Breast cancer screening: mamm vaginal estrogen for mesh erosion. fu with urogyn other health maintenance examination reviewed and orders placed if needed. Encouraged maintenance of a healthy weight and active lifestyle and handout given. Annual exam handout including recommendations for good health guidelines, Calcium/vitamin D recommendations, and basic screening information given. Problem list up to date, see problem list details for any additional plan information. Follow up in one year for annual health maintenance exam or sooner if needed. Orders Referrals: Coding Level of Care Code Off vis,est,prev 65+yrs Diagnoses Mixed incontinence N39.46 Encounter for gynecological examination with abnormal finding Z01.411 Gynecological examination findings: abnormal findings PRESENT Erosion of vaginal mesh, initial encounter T83.711A Encounter type: initial encounter 01/31/18 0915 <Electronically signed by Chantal Galaviz MD> Date Chantal Galaviz MD Cosigner Signature: Date (if applicable) CC: CREATININE FINGERSTICK Collected: 01/21/2018 Status: F Source: IS[facility]K 6:52 AM [facility] REPOSITORY TYPE CODE TESTS RESULT OUT OF RANGE REFERENCE UNITS LAB L9100.0210 0.55-1.02 mg/dL Normal CREATININE WB 0.6 LAB L9100.0220 >60 mL/min EGFR WB Normal > 60.0000 Performed By: #### L9100.0200 #### [facility] Laboratory Point of Care [address] [place] [address] BRAIN W/WO CONTRAST Observed: 01/21/2018 Status: F Source: [place] 6:46 AM [facility] REPOSITORY [facility] Imaging Services [address] [place] [address] Brain W/WO Contrast MR#: [id number] Acct: [id number] Name: LINDA DURANT Rep #: [id number] : 1945 F 72 From: Manny Valadez PCP: Marsha Mckeon MD Status: REG CLI Study: Brain W/WO Contrast Date of Exam: 01/21/18 Exam# [id number] Ordering Dr: Marsha Mckeon MD STUDY: MRI BRAIN WITH AND WITHOUT CONTRAST REASON FOR EXAM: Female, 72 years old. unsteady gait TO THE R , floater L eye. TECHNIQUE: Standardized multiplanar fat and water weighted pulse sequences were obtained. 5 ml of Gadavist contrast material was administered intravenously for the contrast portion of the examination. COMPARISON: None. FINDINGS: Normal size of the ventricles and extra-axial spaces for the patient's age. Normal white matter tracts of the supratentorial brain. Normal bilateral basal ganglia. Normal thalami. There is no extra-axial fluid accumulation. Normal flow voids within the major intracranial circulation suggesting patency by spin echo criteria. Normal venous enhancement. There is no enhancing intra-axial or extra-axial abnormality. Normal sella turcica, pituitary gland, infundibular stalk, optic chiasm and hypothalamus. Normal tectal plate and pineal gland. Normal midbrain, regina and medulla. Normal cerebellum. Normal basal cisterns. Normal bilateral temporal bones. Normal bilateral internal auditory canals. No demonstrated orbital abnormality, within the constraints of a routine brain study. Normal visualized paranasal sinuses. Normal calvarium and skull base. Normal visualized soft tissue structures. Normal visualized upper cervical spine. MRI/Brain W/WO Contrast IMPRESSION: Unremarkable unenhanced and enhanced MRI of the brain. Electronically Signed: Manny Valadez MD at 8:03 EST Tel , Service support , CC: Marsha Mckeon MD Nascar Driver: Signed CAROTID DUPLEX Observed: 01/20/2018 Status: F Source: [place] ULTRASOUND 1:07 PM [facility] REPOSITORY [facility] Cardiovascular Services [address] [place] [address] Carotid Duplex Ultrasound 01/20/18 0956 MR#: [id number] Acct: [id number] Name: LINDA DURANT Rep #: [id number] : 1945 72 From: Bassem Alicea MD Attending Dr: Marsha Mckeon MD Status: REG CLI Ordering Dr: Marsha Mckeon MD Date: 01/20/18 Location: [facility] Sex: F C Admitted: Reason For Study: Impairment of balance Rt. Velocities/BP Lt. Velocities/BP Prox CCA 68.6/17.0 cm/sec. Prox CCA 63.9/19.9 cm/sec. Mid CCA 65.1/15.2 cm/sec. Mid CCA 61.6/17.0 cm/sec. Dist CCA 63.9/17.0 cm/sec. Dist CCA 56.9/19.3 cm/sec. Prox ICA 62.1/20.5 cm/sec. Prox ICA 66.3/27.0 cm/sec. Mid ICA 100.0/32.5 cm/sec. Mid ICA 64.5/18.0 cm/sec. Dist ICA 52.4/18.2 cm/sec. Dist ICA 62.0/16.2 cm/sec. Rt. ICA/CCA = 1.5. Lt. ICA/CCA = 1.1. Prox ECA 69.2/12.3 cm/sec. Prox ECA 80.9/10.6 cm/sec. Rt. Vert. 39.9/11.7 cm/sec. Lt. Vert. 45.7/12.9 cm/sec. Right Extracranial There is intimal thickening but no significant atherosclerotic plaque noted in the right common carotid artery. There is intimal thickening but no significant atherosclerotic plaque noted in the right internal carotid artery. There is no significant atherosclerotic plaque noted in the right external carotid artery. Antegrade flow is noted in the right vertebral artery. Left Extracranial There is intimal thickening but no significant atherosclerotic plaque noted in the left common carotid artery. There is intimal thickening but no significant atherosclerotic plaque noted in the left internal carotid artery. There is intimal thickening but no significant atherosclerotic plaque noted in the left external carotid artery. Antegrade flow is noted in the left vertebral artery. Procedure Carotid Duplex 94072. Exam performed in department. Interpretation Summary No significant atherosclerotic plaque or stenosis noted in the internal carotid arteries bilaterally. Flow within the vertebral arteries is antegrade bilaterally. Ordering Physician: Marsha Mckeon Referring Physician: Marsha Mckeon Performed By: Kadie Avila RVT 01/20/18 1307 Date Bassem Alicea MD CC: Marsha Mckeon MD Date Dictated: 01/20/18 0956 Date Transcribed: 01/20/18 1307 Nascar Driver: Signed SCREENING MAMM (CAD), Observed: 01/07/2018 Status: F Source: ISAAK MANJARREZ 9:01 AM [facility] REPOSITORY [facility] Imaging Services [address] [place] [id number] SCREENING MAMM (CAD), BILAT MR#: [id number] Acct: [id number] Name: LINDA DURANT Rep #: [id number] : 1945 F 72 From: Camron Parks MD PCP: Marsha Mckeon MD Status: REG CLI Study: SCREENING MAMM (CAD), BILAT Date of Exam: 01/07/18 Exam# [id number] Ordering Dr: Chantal Galaviz MD MAMMOGRAPHY - BILATERAL SCREENING REASON FOR EXAM: Female, 72 years old. Routine annual screening examination. PERTINENT HISTORY: Grandmother with breast cancer. TECHNIQUE: Digital bilateral breast liliana (3D mammographic acquisition) in the CC and MLO projections. 2-D mediolateral oblique (MLO) and craniocaudad (CC) views of both breasts were obtained. CAD: Full Field Digital Mammography with Computer Added Detection was performed. COMPARISON: Comparison is made with prior study dated February 02, 2017 and February 05, 2016. FINDINGS: Breast Composition: The breasts are extremely dense, which lowers the sensitivity of mammography. There are no dominant masses or suspicious calcifications. No other significant abnormalities are identified. There has been no significant change since the prior study. BI/SCREENING MAMM (CAD), BILAT IMPRESSION: Stable bilateral screening mammogram. Yearly follow-up mammogram recommended. (A) ASSESSMENT CATEGORY: BIRADS Category 1: Negative. A letter regarding these results will be sent to the patient by the facility within 30 days. Approximately 10% of breast cancers are not detected by mammography. A normal mammogram should not delay biopsy of a clinically suspicious abnormality. [id number] Electronically Signed: Camron Parks MD at 9:22 EST Tel [phone], Service support , CC: Marsha Mckeon MD; Chantal Galaviz MD Nascar Driver: Signed CASE WORKER OFFICE VISIT Observed: 09/03/2017 Status: F Source: [place] REPORT 2:02 PM [facility] REPOSITORY [facility] [address] [place] [address] OFFICE VISIT Date of Service: 09/03/17 MR#: [id number] Acct: [id number] Name: LINDA DURANT Rep #: [id number] : 1945 Provider: Chantal Galaviz MD Age/Sex: 72/F Location: [facility] Status: Signed Intake Vital Signs09/03/17 Height 4 ft 11 in 09/03/17 Weight: 103 lb 6 oz 09/03/17 Body Mass Index (BMI) 20.8 Intake Visit Reasons: ER FOLLOW UP - PMB/PACKING Chief Complaint: ER follow Up, PMB Engine Cleaner Required: No Is patient in pain?: No Allergies Penicillins [PCN] Allergy (Verified 09/03/17 09:07) Rash sulfamethoxazole [From Bactrim] Adverse Reaction (Verified 09/03/17 09:07) Vomiting trimethoprim [From Bactrim] Adverse Reaction (Verified 09/03/17 09:07) Vomiting Medications Metoprolol(XL)Succ [Toprol Xl (Beta Gabe)] 50 mg PO DAILY #30 tab 01/27/13 [Rx Confirmed 09/03/17] Raloxifene HCl [Evista] 60 mg PO DAILY 01/27/13 [History Confirmed 09/03/17] Hydrochlorothiazide 25 mg PO DAILY #30 tab 02/03/13 [Rx Confirmed 09/03/17] Biotin 5 mg PO DAILY 08/11/17 [History Confirmed 09/03/17] Finasteride [Proscar] 5 mg PO DAILY 08/11/17 [History Confirmed 09/03/17] Psyllium [Metamucil] 1 packet PO DAILY 08/11/17 [History Confirmed 09/03/17] esomeprazole magnesium 20 mg capsule,delayed release 20 mg PO QDAY 09/03/17 [History Confirmed 09/03/17] Is last menstrual period known: No Post menopausal: Yes Patient : No : No PFSH Medical History Seasonal allergies (Acute) Hypertension (Chronic) Surgical History H/O dilation and curettage (Acute) History of LAVH (Acute) History of tonsillectomy (Acute) trigger finger surgery (Acute) Family History Father Myocardial infarction Mother Diabetes Social History Smoking Status: Never smoker alcohol intake: current details: social substance use type: does not use caffeine: Yes what type of physical activity do you participate in: walking seatbelt use: always do you feel safe at home: Yes additional social history: Quentin- Both are Retired HPI ER FOLLOW UP - PMB/PACKING: Details: LINDA DURANT is a 72 year old who presents for follow up of bleeding in er last night. no vaginal bleeding since and doing well, no signficiant pain. able to empty bladder with cathing PVR> Pregancy History 3 Elective abortions Hx Para 3 Spontaneous abortions Past Pregnancies Del. DatName GA/WeeksOutcome Route Bt [facility] LgAnesthesDel LocaProviderFOB e ht en tn Unknown 1974 Arnel l Unknown 1977 Jayson h Unknown 1980 [facility] Exam Const General: cooperative, well developed, healthy appearing External Female Exam: normal external appearance Speculum Exam - Vagina: normal appearance of the vagina (no bleeding after packing removed, stitches intact) Assessment AND Plan Problems 1. Postoperative bleeding from incision Plan bleeding stopped and stable, recommend exp management for now precautions reviewed Coding Level of Care Code No Charge Diagnoses Postoperative bleeding from incision 09/03/17 1402 <Electronically signed by Chantal Galaviz MD> Date Chantal Galaviz MD Cosigner Signature: Date (if applicable) CC: OPERATIVE REPORT Observed: 08/14/2017 Status: F Source: [place] 2:27 AM [facility] REPOSITORY [facility] Medical Records Department [address] [place] [address] Operative Report 08/14/17 0157 MR#: [id number] Acct: [id number] Name: LINDA DURANT Rep #: [id number] : 1945 72 From: Chantal Galaviz MD PCP: Marsha Mckeon MD Status: DEP [facility] Y Location: [facility] Problem List (1) Mixed incontinence Status: Acute (2) Cystocele and rectocele with incomplete uterovaginal prolapse Status: Acute Report of Operation Date of Procedure: 08/13/17 Pre-Operative Diagnosis: Uterovaginal prolapse, stress incontinence Post-Operative Diagnosis: same Surgery/Procedure Performed:: Total vaginal hysterectomy, bilateral salpingectomy, uterosacral ligament suspension, anterior and posterior repair, midurethral sling and cystoscopy. earth science technician: Chantal Galaviz earth science technician: Holli Garcia Type of Anesthesia:: General Anesthesiologist: Michele Jean Special Medications: 1% lidocaine with epi Specimen's removed: uterus, cervix, bilateral fallopian tubes Drains: Fink to PACU Estimated Blood Loss (mL): 50 ML Fluids Replaced: crystalloid Description of Procedure: Patient was taken to the operating room and was placed under general anesthesia was prepped and draped in normal sterile fashion in the dorsal lithotomy position. Preoperative antibiotics and SCDs and Fink catheter was placed inside the bladder. Weighted speculum was placed in the vagina and the anterior and posterior lip of the cervix was grasped with 2 Mack clamps and circumferentially injected with dilute vasopressin. A circumferential incision was made with a scalpel and the posterior cul-de-sac was entered into sharply and a longneck speculum was placed. The anterior cul-de-sac was also dissected down and entered into sharply and the uterosacral ligaments were clamped cut and suture ligated bilaterally followed by the cardinal ligaments which were Clamped cut and suture ligated bilaterally with 0 Monocryl. The uterus serially descended and progressive bites were taken bilaterally up to the level of the utero-ovarian ligament bilaterally which was clamped transected and double ligated with 0 Monocryl suture and 0 Vicryl free tie. Bilateral fallopian tubes and ovaries were well visualized and noted be within normal limits and the bilateral fallopian tubes were transected across the base with the bovie and removed. Excellent hemostasis was noted. Dr Gamez performed the US ligament fixation and anterior repair and then The vagina was closed with [id number] 0 Vicryl pop offs. Excellent hemostasis was noted. The rest of Dr Gamez's procedures were performed and All instruments removed from the vagina clear urine was noted at the end of the procedure and patient was awoken and taken recovery in stable condition. Grafts/Implants Used: none - Complications none - Admit VTE Documentation VTE Present on Admission: No VTE Mechan Device Prophylaxis: SCD's 08/14/17 0227 <Electronically signed by Chantal Galaviz MD> Date Chantal Galaviz MD CC: Marsha Mckeon MD; MD Awilda Gamez; Chantal Galaviz MD Signed OPERATIVE REPORT Observed: 08/13/2017 Status: F Source: [place] 12:44 PM [facility] REPOSITORY [facility] Medical Records Department [address] [place] [address] Operative Report 08/13/17 1237 MR#: [id number] Acct: [id number] Name: LINDA DURANT Rep #: [id number] : 1945 72 From: Awilda Gamez MD PCP: Marsha Mckeon MD Status: [facility] Y Location: [place] [address] Problem List (1) Mixed incontinence Status: Acute (2) Cystocele and rectocele with incomplete uterovaginal prolapse Status: Acute Report of Operation Date of Procedure: 08/13/17 Pre-Operative Diagnosis: Uterovaginal prolapse, stress incontinence Post-Operative Diagnosis: same Surgery/Procedure Performed:: Total vaginal hysterectomy, bilateral salpingectomy, uterosacral ligament suspension, anterior and posterior repair, midurethral sling and cystoscopy. Description of Surgical Findings:: The patient was taken to the operating room where general anesthesia was initiated. The patient was placed in dorsal lithotomy position and prepped and draped in sterile fashion. A surgical timeout occurred. A fink catheter was placed in the patient's bladder. (Performed by Dr. Chantal Galaviz) A weighted speculum was placed in the patient's vagina. A curved Tioga was used to retract the anterior vaginal wall and bladder out of the field. The cervix was grasped with two Mack traction forceps. The cervix was then injected with 0.25% marcaine mixed with epinephrine. A circumferential incision with a 10 blade scalpel was then made incising the vagina mucosa down to the body of the cervix. The posterior vaginal epithelium was then dissected off the cervix until the peritoneum of the pouch of Tapan was reached. This was then grasped and cut with Herring scissors entering the peritoneal cavity. A long weighted speculum was then placed in the posterior cul-de-sac. Attention was then turned to the anterior vaginal wall epithelium which was grasped with pickups and dissected, along with the bladder, off of the cervix and the uterus until the peritoneal reflection was visualized. This was then grasped with pickups and incised with Metzenbaum scissors, entering the peritoneal cavity anteriorly. The fink bulb was palpated to confirm that the bladder was not perforated. The Tioga was then used to retract the bladder out of the operative field. A curved Rubi clamp was then used to clamp, cut and suture ligate the uterosacral ligament on the patient's left side. This was repeated on the contralateral side. Next, the vessels of the broad ligament including the uterine vessels were clamped, cut and suture ligated bilaterally. Finally, the utero-ovarian ligament was clamped cut and suture ligated; first with a tie on a passer and then with a Rubi stitch. The uterus and cervix were passed off the sterile field and sent to pathology. A bilateral salpingectomy was performed by grasping the fallopian tubes with a rajani clamp and excising them with bovie electrocautery. Both tubes were normal in appearance and sent to pathology. With two Breisky Navratil retractors placed anteriorly and posteriorly in the vagina, the bowel was packed out of the cul-de-sac using a moist Kerlex sponge. 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 This was followed by a 2-0 prolene suture using an SH needle. This was repeated on the contralateral side. The instruments and packing were removed from the vagina. The patient was given 5 mg of Lasix IV and 5 cc of Indigo Glidden. Cystoscopy was then performed while holding tension on the uterosacral ligament suspensions sutures. Bilateral efflux of blue urine was seen from ureteral orifices. The vaginal epithelium overlying the anterior vaginal wall was grasped with two Allis clamps, injected with 0.25% Marcaine with epinephrine and a midline incision was made over the herniation of the anterior vaginal wall. The underlying pubocervical fascia was dissected off the overlying vaginal epithelium until the herniation of the pubocervical fascia was completely exposed. Hemostasis was achieved with electrosurgical cautery. The herniation was repaired in the traditional fashion using imbricating horizontal mattress sutures of 2-O PDS on a CT-1 needle. Once the herniation was completely repaired, the redundant vaginal epithelium was excised and the incision was closed with a running, locking 3-O vicryl suture. Excellent hemostasis was noted. The vaginal epithelium overlying the mid-urethra was grasped with two Allis clamps, injected with 0.25% Marcaine with epinephrine and a 1.5 cm midline incision was made over the mid urethra using a 15 blade scalpel. Tunnels were dissected bilaterally to the pubic rami and the Patria desera trocars were passed through the tunnels on the right side, through the space of Retzius and out the skin at at the pubic symphysis. This was repeated on the patient's left side. Cystoscopy was performed and there was no evidence of bladder or urethral injury. The sling was then drawn up through the space of Retzius and out the skin at the pubic symphysis. Tension was adjusted by placing a Wangensteen forceps between the sling and the urethra. Once adequate tension was adjusted, the plastic sheaths were removed. The redundant sling was trimmed at the skin edges and the skin was repaired with Indermil. The sutures were then bought through the corners of the vaginal cuff. The cuff was closed with interrupted 0-vicryl sutures. The uterosacral ligament sutures were then tied, elevating the vaginal vault. A self-retaining retractor was used to retract the labia and vagina for adequate visualization and exposure. The vaginal epithelium overlying the posterior vaginal wall was grasped with two Allis clamps, injected with 0.25% Marcaine with epinephrine and a midline incision was made over the herniation of the posterior vaginal wall. The underlying rectovaginal fascia was dissected off the overlying vaginal epithelium until the herniation of the rectovaginal fascia was completely exposed. Hemostasis was achieved with electrosurgical cautery. With placement of a rectal finger, the herniation was repaired in the traditional fashion using imbricating horizontal mattress sutures of 2-O PDS on a CT-1 needle. Once the herniation was completely repaired, the redundant vaginal epithelium was excised and the incision was closed with a running, locking 3-O vicryl suture. Excellent hemostasis was noted. The vagina was packed with Kerlex gauze soaked in estrogen cream. Anesthesia was discontinued. All needle, instrument, and sponge counts were correct x 2. The patient was taken to recovery room in stable condition draining clear urine from her fink catheter. earth science technician: None earth science technician: Chantal Galaviz earth science technician: Holli Garcia Type of Anesthesia:: General Anesthesiologist: Michele Jean Special Medications: 1% lidocaine with epi Specimen's removed: uterus, cervix, bilateral fallopian tubes Drains: Fink to PACU Estimated Blood Loss (mL): 50 ML Grafts/Implants Used: Patria Desera sling - Complications None - Admit VTE Documentation VTE Present on Admission: Yes VTE Mechan Device Prophylaxis: SCD's VTE Pharm Prophylaxis ordered?: No Reason prophylaxis not ordered:: Treatment Not Indicated 08/13/17 1244 <Electronically signed by Awilda Gamez MD> Date Awilda Gamez MD CC: Marsha Mckeon MD; MD Awilda Gamez; Chantal Galaviz MD Signed DISCHARGE INSTRUCTION Observed: 08/13/2017 Status: F Source: PLUSH 12:36 PM [facility] REPOSITORY [facility] Medical Records Department [address] [place] [address] Instructions for Home/Discharge Instructions 08/13/17 1234 MR#: [id number] Acct: [id number] Name: LINDA DURANT Rep #: [id number] : 1945 72 From: Awilda Gamez MD PCP: Marsha Mckeon MD Status: REG [facility] Discharge Activity: Return to Normal Activity, May Not Drive - while taking narcotic pain medications., May Shower May shower in (days): 1 May resume sexual activity in: 6 weeks Weight Bearing Status: Weight bearing as tolerated Call your doctor if your incision/area has: Continuous Slow Oozing, Sudden Increased Bleeding, Increased Pain/ Swelling, Increased Redness, Foul Smelling Discharge Call your doctor if you observe: Fever of 101 or Higher, Inability to urinate, Inability to have a bowel movement, Using more than one pad per hour Allergies/Adverse Reactions: Allergies Penicillins [PCN] Allergy (Verified 01/27/13 11:27) Rash sulfamethoxazole [From Bactrim] Adverse Reaction (Verified 01/27/13 11:27) Vomiting trimethoprim [From Bactrim] Adverse Reaction (Verified 01/27/13 11:27) Vomiting Medications to take at Discharge Metoprolol(XL)Succ [Toprol Xl (Beta Gabe)] 50 mg PO DAILY #30 tablet 01/27/13 Omeprazole [Prilosec] 20 mg PO DAILY 01/27/13 Raloxifene HCl [Evista] 60 mg PO DAILY 01/27/13 Hydrochlorothiazide 25 mg PO DAILY #30 tablet 02/03/13 Biotin 5 mg PO DAILY 08/11/17 Fexofenadine/Pseudoephedrine [Nitza-D 12 Hour Tablet] 1 each PO DAILY 08/11/17 Finasteride [Proscar] 5 mg PO DAILY 08/11/17 Mometasone/Formoterol [Dulera 100 Mcg/5 Mcg Inhaler] 13 gm IH PRN PRN 08/11/17 Psyllium [Metamucil] 1 packet PO DAILY 08/11/17 Primary Care Physician: Marsha Mckeon MD [Primary Care Provider] - Please Follow Up With: Awilda Gamez MD When: 6 weeks Proposed Discharge Date: 08/13/17 08/13/17 1236 <Electronically signed by Awilda Gamez MD> Date Awilda Gamez MD CC: Marsha Mckeon MD; Chantal Galaviz MD HYSTERECTOMY SPECIMEN Observed: 08/13/2017 Status: F Source: ISAAK 12:00 AM [facility] REPOSIT[facility] Patient: LINDA DURANT : 1945 (72/F) Acct Num: [id number] Phys: Awilda Gamez MD Unit Num: [id number] Loc: [facility] Specimen: [id number] Received: 08/13/17 - 1443 Spec Type: HYSTERECT TISSUES TISSUES: Uterus, NOS GROSS DESCRIPTION Received in fixative is one container labeled with the patient's name and designated uterus, bilateral fallopian tubes and cervix. The specimen consists of a hysterectomy specimen consisting of uterus with cervix and detached bilateral fallopian tubes. The uterus with cervix weighs 77 gm and measures 9 x 5.5 x 4 cm. The serosal surface is oneal, glistening. The ectocervical mucosa is unremarkable. The external os is stenotic. The endocervical canal measures 3 cm in length and the endocervical mucosa is unremarkable. The triangular endometrial cavity measures 5 cm in length and up to 4 cm in width. The endometrium is oneal, glistening without any mass lesion and measures 0.1 cm in thickness. Sections of the uterine wall reveal a submucosal to intramural nodular mass measuring 3.5 x 3 x 2.5 cm. Sections of this mass reveals oneal whorled cut surfaces without areas of hemorrhage, necrosis or cystic degeneration. The uninvolved uterine wall measures up to 1.5 cm in thickness. The fallopian tubes are not identified as right or left. One of the fallopian tubes measure 4 cm in length and 0.7 cm in diameter. The second fallopian tube measures 5 cm in length and 0.5 cm in diameter. Fimbrial ends are identified in both fallopian tubes. Sections reveal unremarkable cut surfaces. Table Keeper sections are submitted in ten cassettes as follows: 1 - anterior cervix, 2 - posterior cervix, 3 AND 4 - anterior uterine wall, 5 AND 6 - posterior uterine wall, 7 AND 8 nodular mass, 9 AND 10 fallopian tubes, each cassette containing one fallopian tube. / SJ:amari 08/13/17 TC:1 CPT: 21215 HEADER OPERATION: Anterior and posterior repair; vaginal hysterectomy, salpingectomy PRE-OP DIAGNOSIS: Mixed incontinence, cystocele and rectocele with incomplete uterovaginal prolapse TISSUE SUBMITTED: Uterus, bilateral fallopian tubes, cervix MICROSCOPIC DESCRIPTION Slides are reviewed. MICROSCOPIC DIAGNOSIS Uterus, hysterectomy: Cervix nabothian cysts and mild chronic inflammation. Endometrium inactive endometrium with cystic change. Myometrium leiomyoma with hyalinization. Focal adenomyosis. Right and left fallopian tubes benign paratubal cyst. AM:amari 08/16/17 Signed Ranjit Barr 08/16/17 <signature on file> Performed By: #### PHYST #### [facility] [address] [place], [address] 12 LEAD ELECTROCARDIOGRAM Observed: 08/12/2017 Status: F Source: ISAAK 9:09 AM [facility] REPOSITORY [facility] Cardiovascular Services [address] [address] EKG - SDC 08/11/17 0950 MR#: [id number] Acct: [id number] Name: LINDA DURANT Rep #: [id number] : 1945 72 From: Ramu Oates MD Attending Dr: Awilda Gamez MD Status: PRE SDC Ordering Dr: Rex Mares MD Date: 08/11/17 Location: [facility] Sex: F C Admitted: Test Reason : Blood Pressure : / mmHG Vent. Rate : 057 BPM Atrial Rate : 057 BPM P-R Int : 164 ms QRS Dur : 084 ms QT Int : 446 ms P-R-T Axes : 055 047 044 degrees QTc Int : 434 ms Sinus bradycardia Possible Left atrial enlargement Borderline ECG Confirmed by LASHON MEEHAN, RAMU ([id number]), content editor ANGELA MCKEON ([id number]) on 08/12/2017 9:09:19 AM Referred By: Awilda Gamez Confirmed By:RAMU OATES MD 08/12/17908 Date Ramu Oates MD CC: Rex Mares MD; Marsha Mckeon MD; MD Awilda Gamez Date Dictated: 08/11/17949 Date Transcribed: 08/11/17949 Nascar Driver: Signed BASIC METABOLIC Collected: 08/11/2017 Status: F Source: ISAAK PROFILE (BMP) 11:00 AM [facility] REPOSITORY TYPE CODE TESTS RESULT OUT OF RANGE REFERENCE UNITS LAB L501.0100 74-106 mg/dL Normal GLU 95 Result Comment: Please note revised GLUCOSE reference range effective 2017. LAB L501.1000 7-18 mg/dL Normal BUN 16 LAB L501.1100 0.55-1.02 mg/dL Normal CREAT,SERUM 0.70 Result Comment: The validity of the calculated GFR AND GFRAA in patients over 70 years has not been determined. Clinical correlation is essential. LAB L501.1110 >60 mL/min Normal EST GFR 88 Result Comment: Non- GFR Calc LAB L501.1115 >60 mL/min Normal EST GFR - AA 106 Result Comment: GFR Calc LAB L501.1255 ml/min Normal Estimated CRCL 42.06 LAB L501.1300 10-20 RATIO High BUN/CRE 22.9 LAB L501.2200 8.5-10 mg/dL Normal .1 CA 8.8 LAB L501.5300 136-14 mmol/L Normal 5 NA 139 LAB L501.5600 3.5-5. mmol/L Normal 1 K 3.8 LAB L501.5900 98-107 mmol/L Normal CL 103 LAB L501.6100 21.0-3 mmol/L Normal 2.0 CO2 32.0 LAB L501.6200 5-15 Low GAP 4 Performed By: #### L500.2500, L501.9520 #### [facility] [address] [place], [place], [address] THYROID STIM HORMONE Collected: 08/11/2017 Status: F Source: PLUSH (TSH) 11:00 AM [facility] REPOSIT[facility] TYPE CODE TESTS RESULT OUT OF RANGE REFERENCE UNITS LAB L501.9520 0.358-3.74 uIU/mL Normal TSH 1.51 Performed By: #### L500.2500, L501.9520 #### [facility] [address] [place], [place], [address] ALLERGIES ALLERGIES DATE TYPE / CODE NAME / CODE REACTION SEVERITY SOURCE 01/31/2018 Drug Penicillins/ Rash Unknown [facility] Allergy/4160 [id number]( Hospital 95004(SNOMED XNORM) Repository CT) 01/31/2018 Drug sulfamethoxa Vomiting Unknown [facility] Allergy/4160 zole/[id number] Hospital 52025(SNOMED 827(RXNORM) Repository CT) 01/31/2018 Drug trimethoprim Vomiting Unknown [facility] Allergy/4160 /[id number]( Hospital 19376(SNOMED RXNORM) Repository CT) ENCOUNTERS ENCOUNTERS ADMIT/DISCHARGE ACCOUNT NUMBER ADMITTING ENCOUNTER LOCATION SOURCE CLASS 02/01/2018 [id number] [facility] Repository 01/31/2018/02/01/20 [id number] Ambulatory BMSBuilding: [place] [facility] BMS.[facility] Repository 01/21/2018 [id number] Ambulatory [facility] ding:MRI Repository 01/20/2018 [id number] Ambulatory [facility] ding:CVS Repository 01/07/2018 [id number] Ambulatory [facility] ding:OPBI Repository 09/04/2017 [id number] Ambulatory BMSBuilding: [place] BMS.CF.[facility] Repository 09/03/2017/09/04/19 [id number] Ambulatory BMSBuilding: [place] 18 BMS.[facility] Repository 09/02/2017/09/03/19 [id number] Emergency [address] ding:ED Repository 08/14/2017 [id number] Ambulatory BMSBuilding: [place] BMS.CF.[facility] Repository 08/13/2017/08/14/19 [id number] Ambulatory [address] ding:SDC Repository 08/11/2017 [id number] Ambulatory BMSBuilding: [place] [facility] Repository PAYERS PAYERS ENCOUNTER GUARANTOR PAYER SUBSCRIBER SOURCE 02/01/2018 Linda F Primary Linda F [facility] Posh Eyes ShapiroDOB: Insurance:MedicarePoli ShapiroDOB: System [id number] cy Number: Effective [id number] [facility], Date:2010-07[birth year]23 [place] [address]Fhm: () 02/01/2018 Secondary Linda F [facility] Insurance:MedicarePoli ShapiroDOB: System cy Number: Effective [id number] Repository Date:2012-07-23 02/01/2018 Tertiary Insurance:[facility] Linda F [facility] AARP SupplementPolicy ShapiroDOB: System Number: Effective [id number] Repository Date: 01/31/2018 BRUCE L Primary LINDA F [place] [id number] Insurance:MEDICARE SHAPIRODOB: [facility], PART A BPolicy Number: [id number] [address]Nwo: [id number] Repository Date:2017-07-20 () 01/31/2018 Secondary LINDA F [place] Insurance:AARPPolicy SHAPIRODOB: Community Number: [id number] Hospital [id number] Repository Date:3346-85-33[place] [facility] [address], [place] [address]XC: 01/31/2018 Tertiary NOT GIVENUNK [place] Insurance:SELF PAY [facility] Number: Effective Repository Date:2018-01-27 01/21/2018 BRUCE Mckenzie Primary LINDA F [place] [id number] Insurance:MEDICARE SHAPIRODOB: [facility] [place], PART A BPolicy Number: [id number] [facility] Center [address]Gfe: [id number] Repository Date:2018-01-18 () 01/21/2018 Secondary LINDA F [place] Insurance:AARPPolicy SHAPIRODOB: Community Number: [id number] Hospital [id number] Repository Date:0929-44-95[address], [place] [address]NO: 01/21/2018 Tertiary NOT GIVENUNK [place] Insurance:SELF PAY [facility] Number: Effective Repository Date:2018-01-18 01/20/2018 BRUCE Mckenzie Primary LINDA F [place] [id number] Insurance:MEDICARE SHAPIRODOB: [facility] A BPolicy Number: [id number] [facility] [address]Pbi: [id number] Repository Date:2018-01-18 () 01/20/2018 Secondary LINDA F [place] Insurance:AARPPolicy SHAPIRODOB: Community Number: [id number] Hospital [id number] Repository Date:8642-90-26[address], [place] [address]VL: 01/20/2018 Tertiary NOT GIVENUNK [place] Insurance:SELF PAY [facility] Number: Effective Repository Date:2018-01-18 01/07/2018 BRUCE Mckenzie Primary LINDA F [place] [id number] Insurance:MEDICARE SHAPIRODOB: Community [place], PART A olicy Number: [id number] [facility] Center [address]Ehp: [id number] Repository Date:2017-12-28 () 01/07/2018 Secondary LINDA F [place] Insurance:AARPPolicy SHAPIRODOB: Community Number: [id number] Hospital [id number] Repository Date:2725-98-35[address], [place] [address]IC: 01/07/2018 Tertiary NOT GIVENUNK [place] Insurance:SELF PAY [facility] Number: Effective Repository Date:2017-12-28 09/04/2017 BRUCE Mckenzie Primary LINDA F [place] [id number] Insurance:MEDICARE SHAPIRODOB: Community [place], PART A olic Number: [id number] Cancer Center [address]Kfu: [id number] Repository Date:2017-09-02 () 09/04/2017 Secondary LINDA F [place] Insurance:AARPPolicy SHAPIRODOB: Community Number: [id number] Hospital [id number] Repository Date:0956-94-90[address], [place] [address]OK: 09/04/2017 Tertiary NOT GIVENUNK [place] Insurance:SELF PAY [facility] Number: Effective Repository Date:2017-09-04 09/03/2017 BRUCE Mckenzie Primary LINDA F [place] [id number] Insurance:MEDICARE SHAPIRODOB: Community [place], PART A olicy Number: [id number] Cancer Center [address]Qzu: [id number] Repository Date:2017-09-03 () 09/03/2017 Secondary LINDA F [place] Insurance:AARPPolicy SHAPIRODOB: Community Number: [id number] Hospital [id number] Repository Date:8632-13-75[address], [place] [address]NG: 09/03/2017 Tertiary NOT GIVENUNK [place] Insurance:SELF PAY [facility] Number: Effective Repository Date:2017-09-03 09/02/2017 BRUCE Mckenzie Primary LINDA F [place] [id number] Insurance:MEDICARE SHAPIRODOB: Community [place], PART A BPolicy Number: [id number] [facility] Center [address]Kbs: [id number] Repository Date:2017-09-02 () 09/02/2017 Secondary LINDA F [place] Insurance:AARPPolicy SHAPIRODOB: Community Number: [id number] Hospital [id number] Repository Date:8154-23-64[address], [place] [address]AQ: 09/02/2017 Tertiary NOT GIVENUNK [place] Insurance:SELF PAY [facility] Number: Effective Repository Date:2017-09-02 08/14/2017 BRUCE Mckenzie Primary LINDA F [place] [id number] Insurance:MEDICARE SHAPIRODOB: Community [place], PART A BPolicy Number: [id number] [facility] Center [address]Xfz: [id number] Repository Date:2017-08-14 () 08/14/2017 Secondary LINDA F [place] Insurance:AARPPolicy SHAPIRODOB: Community Number: [id number] Hospital [id number] Repository Date:5728-76-09[address], [place] [address]CL: 08/14/2017 Tertiary NOT GIVENUNK [place] Insurance:SELF PAY [facility] Number: Effective Repository Date:2017-08-14 08/13/2017 BRUCE Mckenzie Primary LINDA F [place] [id number] Insurance:MEDICARE SHAPIRODOB: Community [place], PART A BPolicy Number: [id number] Cancer Center [address]Czo: [id number] Repository Date:2017-05-17 () 08/13/2017 Secondary LINDA F [place] Insurance:AARPPolicy SHAPIRODOB: Community Number: [id number] Hospital [id number] Repository Date:1328-02-56[address], [place] [address]JO: 08/13/2017 Tertiary NOT GIVENUNK [place] Insurance:SELF PAY [facility] Number: Effective Repository Date:2017-05-17 08/11/2017 BRUCE Mckenzie Primary LINDA F [place] [id number] Insurance:MEDICARE SHAPIRODOB: [facility] [place], PART A BPolicy Number: [id number] [facility] [address]Fgn: [id number] Repository Date:2017-08-11 () 08/11/2017 Secondary LINDA F [place] Insurance:AARPPolicy SHAPIRODOB: Community Number: [id number] Hospital [id number] Repository Date:4146-80-91[address]NM, [place] [address]TF: 08/11/2017 Tertiary NOT GIVENUNK [place] Insurance:SELF PAY [facility] Number: Effective Repository Date:2017-08-11
== END ==
PROVIDERS: Family Provider Family Medicine; PCP Family Medicine; Referring Provider Family Medicine; Visit Provider Family Medicine
DX: R26.89 Other abnormalities of gait and mobility (principal)
CPT/HCPCS: 93880

== ENCOUNTER → 2018-01-21 06:27 | Outpatient (CLI) | payer MEDICARE, OTHER, SELFPAY ==
[2017-09-03 09:06] VITALS: BMI 20.8
--- NOTE | 2018-01-21 06:45 | MRI_ITS ---
STUDY: MRI BRAIN WITH AND WITHOUT CONTRAST REASON FOR EXAM: Female, 72 years old. unsteady gait TO THE R , floater L eye. TECHNIQUE: Standardized multiplanar fat and water weighted pulse sequences were obtained. 5 ml of Gadavist contrast material was administered intravenously for the contrast portion of the examination. COMPARISON: None. FINDINGS: Normal size of the ventricles and extra-axial spaces for the patient's age. Normal white matter tracts of the supratentorial brain. Normal bilateral basal ganglia. Normal thalami. There is no extra-axial fluid accumulation. Normal flow voids within the major intracranial circulation suggesting patency by spin echo criteria. Normal venous enhancement. There is no enhancing intra-axial or extra-axial abnormality. Normal sella turcica, pituitary gland, infundibular stalk, optic chiasm and hypothalamus. Normal tectal plate and pineal gland. Normal midbrain, regina and medulla. Normal cerebellum. Normal basal cisterns. Normal bilateral temporal bones. Normal bilateral internal auditory canals. No demonstrated orbital abnormality, within the constraints of a routine brain study. Normal visualized paranasal sinuses. Normal calvarium and skull base. Normal visualized soft tissue structures. Normal visualized upper cervical spine. MRI/Brain W/WO Contrast IMPRESSION: Unremarkable unenhanced and enhanced MRI of the brain. Electronically Signed: Manny Valadez MD at 8:03 EST Tel , Service support ,
[2018-01-21 07:31] LABS: CREATININE FINGERSTICK 0.6 mg/dL (0.55-1.02); EGFR FINGERSTICK > 60.0000 mL/min (>60)
--- OUTSIDE RECORDS SUMMARY | 2018-03-18 00:59 | XMS RPT_ITS ---
[...] Unavailable Mckeon, Marsha Primary Care Unavailable [place], [place] Attending Unavailable Awilda Gamez Referring Unavailable Marcanthony, [...] - Mixed Marcanthony, Active [place] [facility] N39.46(ICD-10) Hospital Repository 01/31/2018 Unknown Z01.411 - Encounter Marcanthony, Active [place] for gynecological [facility] (general) (routine) Repository with abnormal findings / Z01.411(ICD-10) 01/31/2018 Unknown T83.711A - Erosion Marcanthony, Active [place] [facility] vaginal mesh to Hospital surrounding organ Repository or tissue, initial encounter / T83.711A(ICD-10) 01/20/2018 Unknown Z12.31 - Encounter Marcanthony, Active [place] for [facility] mammogram for Hospital malignant neoplasm Repository of breast / Z12.31(ICD-10) 11/04/2017 Unknown N81.2 - Incomplete Franco Awilda Active [place] uterovaginal [facility] prolapse / Hospital N81.2(ICD-10) Repository 09/24/2017 Unknown R00.1 - [place]ash[place], [place] Active [place] Bradycardia, [facility] unspecified / Hospital R00.1(ICD-10) Repository PROCEDURES PROCEDURES No Procedure Records FoundRESULTS RESULTS WAIST CUTTER OFFICE VISIT Observed: 01/31/2018 Status: F Source: IS[place] REPORT 9:15 AM [facility] [place] [facility] [address] [place] [address]. [address] [place] [address] OFFICE VISIT Date of Service: 01/31/18 MR#: [id number] Acct: [id number] Name: LINDA DURANT Rep #: [id number] : 1945 Provider: Chantal Galaviz MD Age/Sex: 72/F Location: [facility] Status: Signed Intake Vital Signs01/31/18 Height 4 ft 11 in 01/31/18 Weight: 108 lb 4 oz 01/31/18 Body Mass Index (BMI) 21.8 01/31/18 Blood Pressure 118/72 Intake Visit Reasons: ANNUAL Documentation Clerk Required: No Is patient in pain?: No [...] l Unknown 1977 Jayson h Unknown 1980 [facility] HPI ANNUAL: Details: LINDA DURANT is a [...] no acute distress, well developed, well groomed [facility] Head: normal to inspection, normocephalic Ears: hearing [...] 01/21/2018 Status: F Source: ISAAK 6:52 AM [facility] [place] [facility] TYPE CODE TESTS RESULT OUT OF RANGE REFERENCE UNITS LAB L9100.0210 0.55-1.02 mg/dL Normal CREATININE WB 0.6 LAB L9100.0220 >60 mL/min EGFR WB Normal > 60.0000 Performed By: #### L9100.0200 #### [facility] Point of Care [address] [place] [address] BRAIN W/WO CONTRAST Observed: 01/21/2018 Status: F Source: [place] 6:46 AM [facility] [place] [facility] Imaging Services [address] [place] [address] Brain W/WO Contrast MR#: [id number] Acct: [id number] Name: LINDA DURANT Rep #: [id number] : 1945 F 72 From: Manny Valadez PCP: Marsha Mckeon MD Status: REG CLI Study: Brain W/WO Contrast Date of Exam: 01/21/18 Exam# [id number] Ordering Dr: Marsha Mckeon MD STUDY: MRI [...] Service support , CC: Marsha Mckeon MD Signaler: Signed CAROTID DUPLEX Observed: 01/20/2018 Status: F Source: [place] ULTRASOUND 1:07 PM [facility] [place] [facility] [facility] Cardiovascular Services [address] [place] [address] Carotid Duplex Ultrasound 01/20/18 0956 MR#: [id number] Acct: [id number] Name: LINDA DURANT Rep #: [id number] : 1945 72 From: Basesm Alicea MD Attending Dr: Marsha Mckeon MD [...] the left vertebral artery. Procedure Carotid Duplex 39785. Exam performed in department. Interpretation Summary No significant atherosclerotic plaque or stenosis noted in the internal carotid arteries bilaterally. Flow within the vertebral arteries is antegrade bilaterally. Ordering Physician: Marsha Mckeon Referring Physician: Marsha Mckeon Performed By: Kadie Avila RVT 01/20/18 1307 Date Bassem [place]a MD CC: Marsha Mckeon MD Date Dictated: 01/20/18 0956 Date Transcribed: 01/20/18 1307 Signaler: Signed SCREENING MAMM (CAD), Observed: 01/07/2018 Status: F Source: ISAAK MANJARREZ 9:01 AM [facility] [place] [facility] [facility] Imaging Services [address] [place] [address] SCREENING MAMM (CAD), BILAT MR#: [id number] Acct: [id number] Name: LINDA DURANT Rep #: [id number] : 1945 F 72 From: Camron Parks MD PCP: Marsha Mckeon MD Status: REG CLI Study: SCREENING MAMM (CAD), BILAT Date of Exam: 01/07/18 Exam# [id number] Ordering Dr: Chantal Galaviz MD MAMMOGRAPHY - [...] delay biopsy of a clinically suspicious abnormality. 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 [place] [address] OFFICE VISIT Date of Service: 09/03/17 MR#: [id number] Acct: [id number] Name: LINDA DURANT Rep #: [id number] : 1945 Provider: Chantal Galaviz MD Age/Sex: 72/F Location: [facility] Status: Signed Intake Vital Signs09/03/17 Height 4 ft 11 in 09/03/17 Weight: 103 lb 6 oz 09/03/17 Body Mass Index (BMI) 20.8 Intake Visit Reasons: ER FOLLOW UP - PMB/PACKING Chief Complaint: ER follow Up, PMB Documentation Clerk Required: No Is patient in pain?: No [...] Pregnancies Del. DatName GA/WeeksOutcome Route Bt WeigInfant [facility] LgAnesthesDel LocaProviderFOB e ht en tn [...] OPERATIVE REPORT Observed: 08/14/2017 Status: F Source: [place] 2:27 AM [facility] [place] [facility] Medical Records Department [address] [place] [address] Operative Report 08/14/17 0157 MR#: [id number] Acct: [id number] Name: LINDA DURANT Rep #: [id number] : 1945 72 From: Chantal Galaviz MD PCP: Marsha Mckeon MD Status: DEP [facility] Y Location: [facility] Problem List (1) Mixed incontinence Status: Acute (2) Cystocele and rectocele with incomplete uterovaginal prolapse Status: Acute Report of Operation Date of Procedure: 08/13/17 Pre-Operative Diagnosis: Uterovaginal prolapse, stress incontinence Post-Operative Diagnosis: same Surgery/Procedure Performed:: Total vaginal hysterectomy, bilateral salpingectomy, uterosacral ligament suspension, anterior and posterior repair, midurethral sling and cystoscopy. storage garage manager: Chantal Galaviz storage garage manager: Holli Garcia Type of Anesthesia:: General Anesthesiologist: [...] and then The vagina was closed with [id number] 0 Vicryl pop offs. Excellent hemostasis was [...] OPERATIVE REPORT Observed: 08/13/2017 Status: F Source: [place] 12:44 PM [facility] [place] [facility] Medical Records Department [address] [place] [address] Operative Report 08/13/17 1237 MR#: [id number] Acct: [id number] Name: LINDA DURANT Rep #: [id number] : 1945 72 From: Awilda Gamez MD PCP: Marsha Mckeon MD Status: [facility] Location: [place] [address] Problem List (1) Mixed incontinence Status: Acute [...] placed in the patient's vagina. A curved [place] was used to retract the anterior vaginal [...] that the bladder was not perforated. The [place] was then used to retract the bladder [...] an HGU-46 needle on a long needle medical delivery driver was passed through the uterosacral ligament on the patients right side. This was followed by a 2-0 prolene suture using an SH needle. This was repeated on the contralateral side. The instruments and packing were removed from the vagina. The patient was given 5 mg of Lasix IV and 5 cc of Indigo [place]. Cystoscopy was then performed while holding tension [...] draining clear urine from her fink catheter. storage garage manager: None storage garage manager: Chantal Galaviz storage garage manager: Holli Garcia Type of Anesthesia:: General Anesthesiologist: [...] DISCHARGE INSTRUCTION Observed: 08/13/2017 Status: F Source: [place] 12:36 PM [facility] [place] [facility] Medical Records Department [address] [facility] [place] [address] Instructions for Home/Discharge Instructions 08/13/17 1234 MR#: [id number] Acct: [id number] Name: LINDA DURANT Rep #: [id number] : 1945 72 From: Awilda Gamez MD PCP: Marsha Mckeon MD Status: REG [facility] Discharge Activity: Return to Normal Activity, May [...] 08/13/2017 Status: F Source: ISAAK 12:00 AM [facility] [place] Patient: LINDA DURANT : 1945 (72/F) Acct Num: [id number] Phys: Awilda Gamez MD Unit Num: [id number] Loc: [facility] Specimen: [id number] Received: 08/13/17 - 1443 Spec Type: HYSTERECT [...] fallopian tubes. Sections reveal unremarkable cut surfaces. Research Physiologist sections are submitted in ten cassettes as follows: 1 - anterior cervix, 2 - posterior cervix, 3 AND 4 - anterior uterine wall, 5 AND 6 - posterior uterine wall, 7 AND 8 nodular mass, 9 AND 10 fallopian tubes, each cassette containing one fallopian tube. / SJ:amari 08/13/17 TC:1 CPT: 68306 HEADER OPERATION: Anterior and posterior repair; vaginal [...] on file> Performed By: #### PHYST #### [facility] [address] [place], [address] 12 LEAD ELECTROCARDIOGRAM Observed: 08/12/2017 Status: F Source: ISAAK 9:09 AM [facility] [place] Cardiovascular Services [address] [address] EKG - SDC 08/11/17 0950 MR#: [id number] Acct: [id number] Name: LINDA DURANT Rep #: [id number] : 1945 72 From: Ramu Oates MD Attending Dr: Awilda Gamez MD Status: PRE SDC Ordering Dr: Rex Mares MD Date: 08/11/17 Location: [facility] Sex: F C Admitted: Test Reason : Blood Pressure : / mmHG Vent. Rate : 057 BPM Atrial Rate : 057 BPM P-R Int : 164 ms QRS Dur : 084 ms QT Int : 446 ms P-R-T Axes : 055 047 044 degrees QTc Int : 434 ms Sinus bradycardia Possible Left atrial enlargement Borderline ECG Confirmed by LASHON MEEHAN, RAMU ([id number]), field map editor ANGELA MCKEON (56) on 08/12/2017 9:09:19 AM Referred By: Awilda Gamez Confirmed By:RAMU OATES MD 08/12/17908 Date Ramu Oates MD CC: Rex Mares MD; Marsha Mckeon MD; MD Awilda Gamez Date Dictated: 08/11/17949 Date Transcribed: 08/11/17949 Signaler: Signed BASIC METABOLIC Collected: 08/11/2017 Status: F Source: ISAAK PROFILE (BMP) 11:00 AM [facility] [place] TYPE CODE TESTS RESULT OUT OF [...] 4 Performed By: #### L500.2500, L501.9520 #### [facility] [address] [place], [place], [address] THYROID STIM HORMONE Collected: 08/11/2017 Status: F Source: [place] (TSH) 11:00 AM [facility] [place] TYPE CODE TESTS RESULT OUT OF RANGE REFERENCE UNITS LAB L501.9520 0.358-3.74 uIU/mL Normal TSH 1.51 Performed By: #### L500.2500, L501.9520 #### [facility] [address] [place], [place], [address] ALLERGIES ALLERGIES DATE TYPE / CODE NAME / CODE REACTION SEVERITY SOURCE 01/31/2018 Drug Penicillins/ Rash Unknown [facility] Allergy/4160 [id number]( Hospital 04691(SNOMED XNORM) Repository CT) 01/31/2018 Drug sulfamethoxa Vomiting Unknown [facility] Allergy/4160 zole/H907729 Hospital 81106(SNOMED 827(RXNORM) Repository CT) 01/31/2018 Drug trimethoprim Vomiting Unknown [facility] Allergy/4160 /[id number]( Hospital 09716(SNOMED RXNORM) Repository CT) ENCOUNTERS ENCOUNTERS ADMIT/DISCHARGE ACCOUNT NUMBER ADMITTING ENCOUNTER LOCATION SOURCE CLASS 02/01/2018 [id number] [facility] Repository 01/31/2018/02/01/20 [id number] Ambulatory BMSBuilding: [place] 18 BMS.[facility] Repository 01/21/2018 [id number] Ambulatory [facility] ding:MRI Repository 01/20/2018 [id number] Ambulatory [facility] ding:[facility] Repository 01/07/2018 [id number] Ambulatory [facility] ding:OPBI Repository 09/04/2017 [id number] Ambulatory BMSBuilding: [place] BMS.CF.[facility] Repository 09/03/2017/09/04/19 [id number] Ambulatory BMSBuilding: [place] 18 BMS.[facility] Repository 09/02/2017/09/03/19 [id number] Emergency [address] ding:ED Repository 08/14/2017 [id number] Ambulatory BMSBuilding: [place] BMS.CF.[facility] Repository 08/13/2017/08/14/19 [id number] Ambulatory [address] ding:SDC Repository 08/11/2017 [id number] Ambulatory BMSBuilding: [place] [facility] Repository PAYERS PAYERS ENCOUNTER GUARANTOR PAYER SUBSCRIBER SOURCE 02/01/2018 Linda F Primary Linda F [facility] [employer] ShapiroDOB: Insurance:MedicarePoli ShapiroDOB: System [id number] cy Number: Effective [id number] [facility], Date:2012-07-23 [place] [address]Lsi: () 02/01/2018 Secondary Ilnda F [facility] Insurance:MedicarePoli ShapiroDOB: System cy Number: Effective [id number] Repository Date:2012-07-23 02/01/2018 Tertiary Insurance:[facility] Linda F [facility] AARP SupplementPolicy ShapiroDOB: System Number: Effective [id number] Repository Date: 01/31/2018 BRUCE L Primary LINDA F [place] [id number] Insurance:MEDICARE SHAPIRODOB: [facility], PART A BPolicy Number: [id number] [address]Twg: [id number] Repository Date:2017-07-20 () 01/31/2018 Secondary LINDA F [place] Insurance:AARPPolicy SHAPIRODOB: Community Number: [id number] Hospital [id number] Repository Date:7781-42-34DX [facility] [address], [place] [address]QP: 01/31/2018 Tertiary NOT GIVENUNK [place] Insurance:SELF PAY [facility] Number: Effective Repository Date:2018-01-27 01/21/2018 BRUCE Mckenzie Primary LINDA F [place] [id number] Insurance:MEDICARE SHAPIRODOB: [facility] [place], PART A BPolicy Number: [id number]-[facility] [address]Uwr: [id number] Repository Date:2018-01-18 () 01/21/2018 Secondary LINDA F [place] Insurance:AARPPolicy SHAPIRODOB: Community Number: [id number] Hospital [id number] Repository Date:0899-00-39[address], [place] [address]YL: 01/21/2018 Tertiary NOT GIVENUNK [place] Insurance:SELF PAY [facility] Number: Effective Repository Date:2018-01-18 01/20/2018 BRUCE Mckenzie Primary LINDA F [place] [id number] Insurance:MEDICARE SHAPIRODOB: [facility] BPolicy Number: [id number] [address]Ojk: [id number] Repository Date:2018-01-18 () 01/20/2018 Secondary LINDA F [place] Insurance:AARPPolicy SHAPIRODOB: Community Number: [id number] Hospital [id number] Repository Date:1981-95-86[address], [place] [address]IH: 01/20/2018 Tertiary NOT GIVENUNK [place] Insurance:SELF PAY [facility] Number: Effective Repository Date:2018-01-18 01/07/2018 BRUCE Mckenzie Primary LINDA F [place] [id number] Insurance:MEDICARE SHAPIRODOB: Community [place], PART A olicy Number: [id number]-Lea General Hospital [address]Uop: [id number] Repository Date:2017-12-28 () 01/07/2018 Secondary LINDA F [place] Insurance:AARPPolicy SHAPIRODOB: Community Number: [id number] Hospital [id number] Repository Date:8721-88-92[address], [place] [address]SA: 01/07/2018 Tertiary NOT GIVENUNK [place] Insurance:SELF PAY [facility] Number: Effective Repository Date:2017-12-28 09/04/2017 BRUCE Mckenzie Primary LINDA F [place] [id number] Insurance:MEDICARE SHAPIRODOB: Community [place], PART A olic Number: [id number]-Lea General Hospital [address]Tpr: [id number] Repository Date:2017-09-02 () 09/04/2017 Secondary LINDA F [place] Insurance:AARPPolicy SHAPIRODOB: Community Number: [id number] Hospital [id number] Repository Date:5727-35-27[address], [place] [address]IG: 09/04/2017 Tertiary NOT GIVENUNK [place] Insurance:SELF PAY [facility] Number: Effective Repository Date:2017-09-04 09/03/2017 BRUCE Mckenzie Primary LINDA F [place] [id number] Insurance:MEDICARE SHAPIRODOB: Community [place], PART A olicy Number: [id number]-Lea [facility] Hospital [address]Tty: [id number] Repository Date:2017-09-03 () 09/03/2017 Secondary LINDA F [place] Insurance:AARPPolicy SHAPIRODOB: Community Number: [id number] Hospital [id number] Repository Date:0292-17-10[address], [place] [address]OB: 09/03/2017 Tertiary NOT GIVENUNK [place] Insurance:SELF PAY [facility] Number: Effective Repository Date:2017-09-03 09/02/2017 BRUCE Mckenzie Primary LINDA F [place] [id number] Insurance:MEDICARE SHAPIRODOB: Community [place], PART A BPolicy Number: [id number]-Lea [facility] Hospital [address]Djh: [id number] Repository Date:2017-09-02 () 09/02/2017 Secondary LINDA F [place] Insurance:AARPPolicy SHAPIRODOB: Community Number: [id number] Hospital [id number] Repository Date:7700-82-21[address], [place] [address]FI: 09/02/2017 Tertiary NOT GIVENUNK [place] Insurance:SELF PAY [facility] Number: Effective Repository Date:2017-09-02 08/14/2017 BRUCE Mckenzie Primary LINDA F [place] [id number] Insurance:MEDICARE SHAPIRODOB: Community [place], PART A BPolicy Number: [id number]-Lea [facility] [address]Cms: [id number] Repository Date:2017-08-14 () 08/14/2017 Secondary LINDA F [place] Insurance:AARPPolicy SHAPIRODOB: Community Number: [id number] Hospital [id number] Repository Date:2547-60-19[address], [place] [address]RC: 08/14/2017 Tertiary NOT GIVENUNK [place] Insurance:SELF PAY [facility] Number: Effective Repository Date:2017-08-14 08/13/2017 BRUCE Mckenzie Primary LINDA F [place] [id number] Insurance:MEDICARE SHAPIRODOB: Community [place], PART A BPolicy Number: [id number]-Lea General Hospital [address]Ynm: [id number] Repository Date:2017-05-17 () 08/13/2017 Secondary LINDA F [place] Insurance:AARPPolicy SHAPIRODOB: Community Number: [id number] Hospital [id number] Repository Date:8482-81-26[address], [place] [address]CR: 08/13/2017 Tertiary NOT GIVENUNK [place] Insurance:SELF PAY [facility] Number: Effective Repository Date:2017-05-17 08/11/2017 BRUCE Mckenzie Primary LINDA F [place] [id number] Insurance:MEDICARE SHAPIRODOB: [facility] [place], PART A BPolicy Number: [id number]-Lea General Hospital [address]Fui: [id number] Repository Date:2017-08-11 () 08/11/2017 Secondary LINDA F [place] Insurance:AARPPolicy SHAPIRODOB: Community Number: [id number] Hospital [id number] Repository Date:2765-69-11[address], [place] [address]NY: 08/11/2017 Tertiary NOT GIVENUNK [place] Insurance:SELF PAY [facility] Number: Effective Repository Date:2017-08-11
== END ==
PROVIDERS: Family Provider Family Medicine; PCP Family Medicine; Referring Provider Family Medicine; Visit Provider Family Medicine
DX: Z01.812 Encounter for preprocedural laboratory examination (principal); R26.89 Other abnormalities of gait and mobility
CPT/HCPCS: 70553; A9585

== ENCOUNTER → 2019-01-09 07:40 | Outpatient (CLI) | payer MEDICARE, SELFPAY ==
[2018-01-31 08:23] VITALS: BMI 21.8
--- NOTE | 2019-01-09 07:44 | BI_ITS ---
MAMMOGRAPHY - BILATERAL SCREENING REASON FOR EXAM: Female, 73 years old. Routine annual screening examination. PERTINENT HISTORY: Grandmother with breast cancer. TECHNIQUE: Digital bilateral breast essence (3D mammographic acquisition) in the CC and MLO projections. 2-D mediolateral oblique (MLO) and craniocaudad (CC) views of both breasts were obtained. CAD: Full Field Digital Mammography with Computer Added Detection was performed. COMPARISON: Comparison is made with prior study dated January 07, 2018 and February 02, 2017. FINDINGS: Breast Composition: The breasts are extremely dense, which lowers the sensitivity of mammography. There are no dominant masses or suspicious calcifications. No other significant abnormalities are identified. There has been no significant change since the prior study. BI/SCREEN MAMM (CAD) W/ESSENCE BILAT IMPRESSION: Stable bilateral screening mammogram. Yearly follow-up mammogram recommended. (A) ASSESSMENT CATEGORY: BIRADS Category 1: Negative. A letter regarding these results will be sent to the patient by the facility within 30 days. Approximately 10% of breast cancers are not detected by mammography. A normal mammogram should not delay biopsy of a clinically suspicious abnormality. [id number] Electronically Signed: Camron Parks, at 9:02 EST , Service support ,
== END ==
PROVIDERS: Referring Provider Obstetrics & Gynecology; Visit Provider Obstetrics & Gynecology
DX: Z12.31 Encounter for screening mammogram for malignant neoplasm of breast (principal); Z80.3 Family history of malignant neoplasm of breast
CPT/HCPCS: 77063; 77067

== ENCOUNTER → 2019-08-23 10:27 | Outpatient (CLI) | payer MEDICARE, OTHER, SELFPAY ==
[2018-01-31 08:23] VITALS: BMI 21.8
--- NOTE | 2019-08-23 10:35 | BD_ITS ---
STUDY: DUAL ENERGY X-RAY ABSORPTIOMETRY / DXA REASON FOR EXAM: Female, 74 years old. 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 COMPARISON: Comparison is made with prior examination dated February 02, 2017. FINDINGS: Lumbar Spine (L1-L4): g/cm2 (1.033) / T-score (-1.2) / Z-score (0.5) Findings are suggestive of osteopenia with a low fracture risk. Increased thoracic kyphosis. Left Femur Total: g/cm2 (0.758) / T-score (-2.0) / Z-score (-0.4) Left Femoral Neck: g/cm2 (0.752) / T-score (-2.1) / Z-score (-0.3) Right Femur Total: g/cm2 (0.736) / T-score (-2.2) / Z-score (-0.6) Right Femoral Neck: g/cm2 (0.685) / T-score (-2.5) / Z-score (-0.8) The T-Scores on the most recent prior examination were: Lumbar Spine (L1-L4): There has been worsening of bone density since the previous examination. Left Femur Total: which represents a worsening of 1.6%. Right Femur Total: which represents a worsening of 1.2%. BD/Dexa Bone Density Study IMPRESSION: The patient is considered osteoporotic as outlined below according to World Misael Organization (WHO) criteria with a high fracture risk. There has been worsening of bone density since the previous examination. Reference Information: The T-score is the number of standard deviations above or below the standard which is normal for young adults at their peak bone mineral density. The World Health Organization (WHO) interprets the T-scores as follows: Above -1 Normal bone density Between -1 and -2.5 Osteopenia Equal to / or below -2.5 Osteoporosis As a practical clinical guideline, osteopenia may be graded as follows: Mild -1 through -1.5 Moderate -1.6 through -2.0 Severe -2.1 through -2.4 The Z-score is the number of standard deviations above or below age-matched controls. A Z-score of less than -1.5 would be considered abnormal. References: 1. NIH Osteoporosis and Related Bone Diseases http://www.osteo.org 2. International Society for Clinical Densitometry http://www.iscd.org 3. National Osteoporosis Foundation http://www.nof.org Electronically Signed: Camron Parks, at 8:19 EDT , Service support ,
== END ==
PROVIDERS: Referring Provider Obstetrics & Gynecology; Visit Provider Obstetrics & Gynecology
DX: M85.80 Other specified disorders of bone density and structure, unspecified site (principal); M81.0 Age-related osteoporosis without current pathological fracture
CPT/HCPCS: 77080

== ENCOUNTER → 2019-11-29 09:35 | Outpatient (CLI) | payer MEDICARE, OTHER, SELFPAY ==
[2019-11-29 08:12] VITALS: BMI 22.0
[2019-11-29 12:24] LABS: PTHIN 42.9 pg/mL (18.4-80.1)
[2019-11-29 12:27] LABS: Vitamin D,25 Hydroxy 19.3 ng/mL
[2019-11-29 12:46] LABS: ALB/GLOB Ratio 1.2 RATIO (0.9-2.4); AST(SGOT) 21 U/L (15-37); Alanine Aminotransfer ALT/SGPT 31 U/L (13-56); Albumin, Serum 4.2 g/dL (3.2-5.0); Alkaline Phosphatase 74 U/L (45-117); Anion Gap 2 (5-15); BUN 17 mg/dL (7-18); BUN/Creat Ratio 24.7 RATIO (10-20); Calcium,Total 9.1 mg/dL (8.5-10.1); Chloride 100 mmol/L (98-107); Cholesterol 222 mg/dL (200); Creatinine, Serum 0.69 mg/dL (0.55-1.02); EST Glomerular Filtration Rate 89 mL/min (>60); Est Glom Filt Rate - Afr Amer 108 mL/min (>60); Globulin 3.6 g/dL (2.2-4.2); Glucose 94 mg/dL (74-106); High Density Lipoprotein 59 mg/dL; Potassium 3.7 mmol/L (3.5-5.1); Protein, Total 7.8 g/dL (6.4-8.2); Sodium Level 136 mmol/L (136-145); Thyroid Stim Hormone (TSH) 2.51 uIU/mL (0.358-3.74); Triglycerides 207 mg/dL; Very Low Density Lipoprotein 41 mg/dL (5-40)
== END ==
PROVIDERS: Referring Provider Internal Medicine Endocrinology, Diabetes & Metabolism; Visit Provider Internal Medicine Endocrinology, Diabetes & Metabolism
DX: M81.0 Age-related osteoporosis without current pathological fracture (principal); Z82.49 Family history of ischemic heart disease and other diseases of the circulatory system; I10 Essential (primary) hypertension; E55.9 Vitamin D deficiency, unspecified
CPT/HCPCS: 36415; 80053; 80061; 82306; 83970; 84443

== ENCOUNTER → 2020-01-09 10:20 | Outpatient (CLI) | payer MEDICARE, OTHER, SELFPAY ==
[2019-11-29 08:12] VITALS: BMI 22.0
[2020-01-09 12:34] LABS: Absolute Lymphocyte Count 1.92 X10^3/uL (0.83-4.51); Absolute Neutrophil Count 6.9 X10^3/uL (2.0-7.7); Basophil# 0.06 X10^3/uL; Basophil% 0.6 % (0-1); Eosinophil# 0.19 X10^3/uL; Hematocrit 41.6 % (37-47); Hemoglobin 13.8 g/dL (12.0-15.0); Lymphocyte # 1.92 X10^3/ul (4.0); Lymphocyte % 19.9 % (19-41); Mean Corp Hgb Conc 33.2 g/dL (32-36); Mean Corpuscular Hgb 30.1 pg (27.0-32.0); Mean Corpuscular Volume 90.6 fL (81-99); Monocyte# 0.54 X10^3/uL; Monocyte% 5.6 % (0-10); NRBC Flagged by Analyzer 0 % (0-5); Neutrophil # 6.88 X10^3/uL (2.7-7.7); Neutrophil % 71.5 % (47-70); Platelet Count 291 K/mm3 (150-450); RBC Distribution Width SD 43.5 fl (35.1-43.9); Red Blood Count 4.59 M/mm3 (4.2-5.4); White Blood Count 9.6 K/mm3 (4.4-11.0)
== END ==
PROVIDERS: PCP Family Medicine; Referring Provider Family Medicine; Visit Provider Family Medicine
DX: R42 Dizziness and giddiness (principal); R00.2 Palpitations
CPT/HCPCS: 36415; 85025

== ENCOUNTER → 2020-01-11 12:12 | Outpatient (CLI) | payer MEDICARE, OTHER, SELFPAY ==
[2019-08-24 14:05] VITALS: BMI 21.8
[2019-11-29 08:12] VITALS: BMI 22.0
--- NOTE | 2020-01-11 12:13 | BI_ITS ---
MAMMOGRAPHY - BILATERAL SCREENING REASON FOR EXAM: Female, 74 years old. Routine annual screening examination. PERTINENT HISTORY: Grandmother with breast cancer. TECHNIQUE: Digital bilateral breast essence (3D mammographic acquisition) in the CC and MLO projections. 2-D mediolateral oblique (MLO) and craniocaudad (CC) views of both breasts were obtained. CAD: Full Field Digital Mammography with Computer Added Detection was performed. COMPARISON: Comparison is made with prior study dated 01/09/2019 and 01/07/2018. FINDINGS: Breast Composition: The breasts are extremely dense, which lowers the sensitivity of mammography. There are no dominant masses or suspicious calcifications. No other significant abnormalities are identified. There has been no significant change since the prior study. BI/SCREEN MAMM (CAD) W/ESSENCE BILAT IMPRESSION: Stable bilateral screening mammogram. Yearly follow-up mammogram recommended. (A) ASSESSMENT CATEGORY: BIRADS Category 1: Negative. A letter regarding these results will be sent to the patient by the facility within 30 days. Approximately 10% of breast cancers are not detected by mammography. A normal mammogram should not delay biopsy of a clinically suspicious abnormality. [id number] Electronically Signed: Camron Parks, at 13:10 EST , Service support ,
== END ==
PROVIDERS: PCP Family Medicine; Referring Provider Nurse Practitioner Women's Health; Visit Provider Nurse Practitioner Women's Health
DX: Z12.31 Encounter for screening mammogram for malignant neoplasm of breast (principal); Z80.3 Family history of malignant neoplasm of breast
CPT/HCPCS: 77063; 77067

== ENCOUNTER → 2020-01-11 12:39 | Outpatient (CLI) | payer MEDICARE, OTHER, SELFPAY ==
[2019-11-29 08:12] VITALS: BMI 22.0
[2020-01-11] MEDS: DENOSUMAB 60 MG/ML SQ (13:02)
[2020-01-11 14:50] VITALS: BP 118/67; PULSE 78; RESP 16; TEMP 36.6; O2SAT 99; BMI 22.0
== END ==
PROVIDERS: Referring Provider Internal Medicine Endocrinology, Diabetes & Metabolism; Visit Provider Internal Medicine Endocrinology, Diabetes & Metabolism
DX: Z12.31 Encounter for screening mammogram for malignant neoplasm of breast (principal); M81.0 Age-related osteoporosis without current pathological fracture; Z80.3 Family history of malignant neoplasm of breast
CPT/HCPCS: 77063; 77067; 96372; J0897

== ENCOUNTER → 2020-07-19 12:59 | Outpatient (CLI) | payer MEDICARE, OTHER, SELFPAY ==
[2019-11-29 08:12] VITALS: BMI 22.0
[2020-01-24 08:36] VITALS: BMI 21.8
[2020-07-19 13:10] VITALS: BP 146/70; PULSE 56; RESP 16; TEMP 35.7; O2SAT 100; BMI 22.0
[2020-07-19] MEDS: DENOSUMAB 60 MG/ML SC (13:14)
== END ==
PROVIDERS: PCP Family Medicine; Referring Provider Internal Medicine Endocrinology, Diabetes & Metabolism; Visit Provider Internal Medicine Endocrinology, Diabetes & Metabolism
DX: M81.0 Age-related osteoporosis without current pathological fracture (principal)
CPT/HCPCS: 96372; J0897

== ENCOUNTER → 2020-08-15 12:29 | Outpatient (CLI) | payer MEDICARE, OTHER, SELFPAY ==
[2020-07-24 10:53] VITALS: BMI 22.6
--- NOTE | 2020-08-15 12:32 | CT_ITS ---
STUDY: CARDIAC CALCIUM SCORING - CT CHEST REASON FOR EXAM: Female, 75 years old. HYPERTENSION RADIATION DOSAGE (If Supplied By Facility): CTDIvol = ( 12.19 ) mGy, DLP = ( 219.42 ) mGycm TECHNIQUE: Axial non-enhanced images were acquired through the heart for the sole purpose of measuring coronary artery calcium. Individualized dose optimization techniques were used for this CT. COMPARISON: None. FINDINGS: Please see the patient''s medical record for a personalized calcium score. There are bilateral mucus impacted bronchi. There are subcentimeter pulmonary nodules with the largest measuring 7 mm in the left lower lobe. CT/Limited Chest CT w/CCTA IMPRESSION: Please see the patient''s medical record for a personalized calcium score. Subcentimeter nodules, measuring up to [address] chest [address] is recommended. Mucus impacted bronchi bilaterally which can be seen with bronchitis. Please go to: [email or web address] , for a description of the calculator. Electronically Signed: Anjle Maguire MD at 9:14 EDT Tel , Service support ,
[2020-08-15 12:42] VITALS: BP 122/48; PULSE 54; RESP 14; O2SAT 99; BMI 22.0
== END ==
PROVIDERS: PCP Family Medicine; Referring Provider Internal Medicine Cardiovascular Disease; Visit Provider Internal Medicine Cardiovascular Disease
DX: I10 Essential (primary) hypertension (principal)
CPT/HCPCS: 75571; 76380

== ENCOUNTER → 2020-08-20 08:31 | Outpatient (CLI) | payer MEDICARE, OTHER, SELFPAY ==
[2020-07-24 10:53] VITALS: BMI 22.6
[2020-08-15 12:42] VITALS: BMI 22.0
--- NOTE | 2020-08-15 17:09 | CA.SCORE ---
Calcium Scoring Coronary Calcium Scoring: High-resolution Computed Tomographic imaging of the chest was performed on [08/11/2020], with particular attention paid to the coronary arteries. Images from the examination were analyzed for the presence and extent of coronary artery calcification , using coronary calcium quantification software. The patient tolerated the procedure well and there were no complications. The results of the coronary calcification analysis are provided below. Left main score is 0 Left anterior descending artery score 0 Left circumflex artery score 0 Right coronary artery score 0 Total Agatston score 0. The above is suggestive of no identifiable atherosclerotic plaquing in the low cardiovascular risk. Complete assessment of risk should include an assessment of all conventional risk factors and the results noted should be considered interpretation of the above. Calcium Scoring Interpretation: 0 No identifiable atherosclerotic plaque. Very low cardiovascular disease risk. <5% chance of presence coronary artery disease A Negative Examination 1-10 Minimal Plaque burden. Significant coronary artery disease very unlikely. 11-100 Mild plaque burden. Likely mild or minimal coronary atherosclerosis. 101-400 Moderate plaque burden Moderate non-obstructive coronary artery disease highly likely. Over 400 Extensive plaque burden. High likelihood of at least one significant coronary stenosis (>50% diameter)
--- NOTE | 2020-08-20 08:32 | STEWCON_ITS ---
Reason For Study: HTN Stress Results Maximum Predicted HR: 147 bpm Target HR: 125 bpm % Maximum Predicted HR: 93 % Heart Stage Duration Rate BP Comment (mm:ss) (bpm) 3.5 CC DEFINITY, NOTED C/O HEADACHE, THEN NECK ACHE THEN SHE HAD A LOWER BACK ACHE ACROSS HER FLANK AREA.. SHE SAT UP THEN LAID BACK DOWN BASELINE 57 122/68D/T DISCOMFORT WORSENING, AFTER 5 MINS SHE FELT BETTER, SAT UP AND WAS ABLE TO COMPLETE STRESS TEST. NO FURTHER S/S STAGE 1 3:00 103 138/82 STAGE 2 3:00 115 144/80 STAGE 3 3:00 131 140/90SOB NOTED STAGE 4 0:30 137 / SOB INCREASED RECOVERY 88 130/78 Stress Duration: 9:30 mm:ss Maximum Stress HR: 137 bpm Baseline Echocardiogram Findings Stress Echo Wall motion Data Resting WM Intermediate WM Stress WM ECHO/Stress Test Echo W/Contrast Interpretation Summary Exercise stress echo. 75-year-old lady with a history of hypertension. Stress protocol: Resting EKG demonstrates normal sinus rhythm with a rate of 57 bpm normal inter vals are noted resting blood pressure is 122/68 mmHg. The patient exercised according to the r egular Efrain protocol for total duration of 9 minutes and 30 seconds. Patient completed 30 seconds in to stage IV of the Efrain protocol. The maximum heart rate attained was 137 bpm which was 93% of ma ximum predicted heart rate the maximum workload was 11.7 metabolic equivalents. At rest there were no ST or T wave changes noted to suggest ischemia and at peak exercise upsloping ST changes were noted with did not meet the criteria for ischemia. No clinical angina was noted the test was terminated due to dyspnea. The peak blood pressure was 148/82 mmHg which was an excellent blood pressure response t o exercise. Stress echocardiogram. Resting and stress echocardiographic images were obtained with and without Defi nity enhancement. The resting ejection fraction was noted to be 60% and during stress there was impro vement in left ventricular systolic function and improvement in ejection fraction to 70%. No w all motion abnormalities were noted to suggest ischemia. The patient had complained of mil d headache with Definity. This resolved. Conclusion: Normal exercise stress echocardiogram at a high workload. Good functional aerobic capacity. Ordering Physician: Ramu Oates Referring Physician: Ramu Oates Performed By: Roxi Vivar, ROXI, RVT
== END ==
PROVIDERS: PCP Family Medicine; Referring Provider Internal Medicine Cardiovascular Disease; Visit Provider Internal Medicine Cardiovascular Disease
DX: I10 Essential (primary) hypertension (principal); R06.02 Shortness of breath; R42 Dizziness and giddiness; R53.83 Other fatigue; R00.2 Palpitations
CPT/HCPCS: 93017; 93350; Q9957; A4216; C8928; J3490

== ENCOUNTER → 2020-09-05 16:57 | Outpatient (CLI) | payer MEDICARE, OTHER, SELFPAY ==
[2020-08-15 12:42] VITALS: BMI 22.0
[2020-09-03 11:05] VITALS: BMI 22.0
[2020-09-05 17:10] LABS: CREATININE FINGERSTICK 0.6 mg/dL (0.55-1.02); EGFR FINGERSTICK > 60.0000 mL/min (>60)
--- NOTE | 2020-09-05 17:10 | CT_ITS ---
HISTORY: Lung nodule. TECHNIQUE: Helically acquired images were obtained of the chest following IV contrast. A radiation dose optimization technique was used for this scan. IV Contrast dosage and agent: 100 mL [id number]. # of images incl. paperwork: [id number]. COMPARISON: 08/15/2020. FINDINGS: CENTRAL AIRWAYS: Patent. LUNGS: Mild biapical scarring. Bilateral pleural-based scars or nodules. Mucoid impaction in the right upper, right middle, and left lower lobes lobes. Calcified right lower lobe granuloma. Irregular 5 mm left lower lobe nodule again seen. PLEURA: No pneumothorax or pleural effusion. HEART AND PERICARDIUM: Heart size within normal limits. No significant pericardial effusion. VESSELS: No aortic aneurysm or dissection flap. Mild atherosclerosis No pulmonary embolism identified. MEDIASTINUM AND DALY: No enlarged lymph nodes. BONES: Degenerative change. UPPER ABDOMEN: Hepatic steatosis. CT/Chest WITH Contrast IMPRESSION: 5 mm left lower lobe pulmonary nodule; recommend follow-up in 12 months. Mild scarring and mucoid impaction again seen. Individualized dose optimization techniques were used for this CT. at 1638 Reported and signed by: Sophie Chopra MD Electronically Signed: Sophie Chopra MD at 16:35 EDT Tel , Service support ,
== END ==
PROVIDERS: PCP Family Medicine; Referring Provider Family Medicine; Visit Provider Family Medicine
DX: R91.1 Solitary pulmonary nodule (principal)
CPT/HCPCS: 71260; Q9967

== ENCOUNTER → 2020-12-02 10:11 | Outpatient (CLI) | payer MEDICARE, OTHER, SELFPAY ==
[2020-12-02 12:27] LABS: Vitamin D,25 Hydroxy 51.9 ng/mL
[2020-12-02 12:48] LABS: AST(SGOT) 20 U/L (15-37); Alanine Aminotransfer ALT/SGPT 33 U/L (13-56); Albumin, Serum 3.9 g/dL (3.2-5.0); Alkaline Phosphatase 73 U/L (45-117); Anion Gap 7 (5-15); BUN 19 mg/dL (7-18); BUN/Creat Ratio 26.6 RATIO (10-20); Chloride 103 mmol/L (98-107); Cholesterol 229 mg/dL (200); Creatinine, Serum 0.71 mg/dL (0.55-1.02); EST Glomerular Filtration Rate 85 mL/min (>60); Est Glom Filt Rate - Afr Amer 103 mL/min (>60); Globulin 3.9 g/dL (2.2-4.2); Glucose 106 mg/dL (74-106); High Density Lipoprotein 63 mg/dL; Potassium 3.4 mmol/L (3.5-5.1); Protein, Total 7.8 g/dL (6.4-8.2); Sodium Level 139 mmol/L (136-145); Thyroid Stim Hormone (TSH) 2.77 uIU/mL (0.358-3.74); Triglycerides 123 mg/dL; Very Low Density Lipoprotein 25 mg/dL (5-40)
== END ==
PROVIDERS: PCP Family Medicine; Visit Provider Internal Medicine Endocrinology, Diabetes & Metabolism
DX: I10 Essential (primary) hypertension (principal); E55.9 Vitamin D deficiency, unspecified; M81.0 Age-related osteoporosis without current pathological fracture
CPT/HCPCS: 36415; 80053; 80061; 82306; 84443

== ENCOUNTER → 2020-12-12 11:35 | Outpatient (CLI) | payer MEDICARE, OTHER, SELFPAY ==
[2020-12-12 15:44] LABS: Absolute Neutrophil Count 4.4 X10^3/uL (2.0-7.7); Basophil# 0.06 X10^3/uL; Basophil% 0.8 % (0-1); Eosinophil# 0.32 X10^3/uL; Eosinophils% 4.2 % (0-5); Hematocrit 42.1 % (37-47); Hemoglobin 13.9 g/dL (12.0-15.0); Lymphocyte % 29.1 % (19-41); Mean Corpuscular Hgb 29.6 pg (27.0-32.0); Mean Corpuscular Volume 89.6 fL (81-99); Mean Platelet Vol. 11.4 fl (6.2-12.0); Monocyte# 0.58 X10^3/uL; Monocyte% 7.7 % (0-10); NRBC Flagged by Analyzer 0 % (0-5); Neutrophil # 4.38 X10^3/uL (2.7-7.7); Neutrophil % 57.9 % (47-70); Platelet Count 316 K/mm3 (150-450); RBC Distribution Width CV 13.8 % (11.6-14.6); RBC Distribution Width SD 44.9 fl (35.1-43.9); White Blood Count 7.6 K/mm3 (4.4-11.0)
[2020-12-12 16:07] LABS: AST(SGOT) 22 U/L (15-37); Alanine Aminotransfer ALT/SGPT 38 U/L (13-56); Albumin, Serum 3.8 g/dL (3.2-5.0); Alkaline Phosphatase 66 U/L (45-117); Anion Gap 10 (5-15); BUN 19 mg/dL (7-18); BUN/Creat Ratio 25.5 RATIO (10-20); Calcium,Total 9.2 mg/dL (8.5-10.1); Chloride 99 mmol/L (98-107); Creatinine, Serum 0.74 mg/dL (0.55-1.02); EST Glomerular Filtration Rate 81 mL/min (>60); Est Glom Filt Rate - Afr Amer 98 mL/min (>60); Globulin 3.8 g/dL (2.2-4.2); Glucose 96 mg/dL (74-106); Magnesium 2.3 mg/dL (1.6-2.6); Potassium 3.4 mmol/L (3.5-5.1); Protein, Total 7.6 g/dL (6.4-8.2); Sodium Level 137 mmol/L (136-145); T4 Free Direct 1.06 ng/dL (0.76-1.46)
[2020-12-26 15:50] LABS: Anti-Thyroglobulin AB 4.2 IU/mL (0.0-0.9); Thyroglobulin RIA 5.4 ng/mL (.); Thyroid Peroxidase AB 266 IU/mL (0-34)
== END ==
PROVIDERS: PCP Family Medicine; Referring Provider Family Medicine; Visit Provider Family Medicine
DX: I10 Essential (primary) hypertension (principal)
CPT/HCPCS: 36415; 80053; 83735; 84432; 84439; 85025; 86376; 86800

== ENCOUNTER → 2020-12-13 | Outpatient (CLI) | payer MEDICARE, OTHER, SELFPAY ==
[2020-12-13 16:16] LABS: Mucous, Urine 0 SEEN /hpf (<or=2+); Red Blood Cells-Urine 0 SEEN /hpf (0-5); White Blood Cells 0 SEEN /hpf (0-5)
[2020-12-13 17:29] LABS: Color, Urine Yellow (Yellow); Glucose, Dipstick Normal (Normal); Ketone-Dipstick Negative (Negative); Leukocyte Esterase-Dipstick Negative /ul (Negative); Nitrite-Dipstick Positive (Negative); Occult Blood-Urine 10 /ul (Negative); Protein-Dipstick Negative (Negative); Urine Bilirubin Dipstick Negative (Negative); Urine Clarity Clear (Clear); Urine Urobilinogen Normal (Normal); Urine pH 6.5 (5.0 - 8.0)
[2020-12-13 18:18] LABS: Bacteria 2+ /hpf (None Seen); Squamous Epithelial Cells - UA 0-5 SEEN /hpf (5-10)
== END | disposition home or self-care (01) ==
LOC: LABSPEC 16:13
PROVIDERS: PCP Family Medicine; Referring Provider Family Medicine; Visit Provider Family Medicine
DX: I10 Essential (primary) hypertension (principal)
CPT/HCPCS: 81001

== ENCOUNTER → 2020-12-16 12:21 | Outpatient (CLI) | payer MEDICARE, OTHER, SELFPAY ==
--- NOTE | 2020-12-16 12:25 | US_ITS ---
EXAM: US SOFT TISSUES HEAD AND NECK, THYROID CLINICAL INDICATION: THYROID NODULE TECHNIQUE: Greyscale and color doppler imaging was performed of the thyroid gland. This report was created using Share[employer] report generation technology. COMPARISON: None. FINDINGS: LEFT THYROID LOBE: Unremarkable. Homogeneous echotexture with normal vascularity. No thyroid nodules are present. RIGHT THYROID LOBE: Unremarkable. Homogeneous echotexture with normal vascularity. No thyroid nodules are present. ISTHMUS: Unremarkable. No thyroid nodules are present. US/Thyroid IMPRESSION: Negative thyroid ultrasound examination. Electronically Signed: Joshua Decker MD ([place]) at 6:55 EDT , Service support ,
== END ==
PROVIDERS: PCP Family Medicine; Referring Provider Family Medicine; Visit Provider Family Medicine
DX: E04.1 Nontoxic single thyroid nodule (principal)
CPT/HCPCS: 76536

== ENCOUNTER 2021-01-07 11:00 | Outpatient (RCR) | payer MEDICARE, OTHER, SELFPAY ==
--- NOTE | 2021-01-01 12:42 | HP.OTEVAL ---
Patient's Visit Information JAKI VIVAS is a 75 year old F, referred to Occupational Therapy by Dr. Clarence Lazaro DO, with a diagnosis of left elbow ulnar collateral ligament sprain/ non disp. fx lat. epi. left. Date of Evaluation: 12/31/20 Occupational Therapist: Karen Hutson, KRYSTLE/Jonah, CHT - Subjective Diagnosis: ULNAR COLLATERAL LIGAMENT SPRAIN OF L ELBOW, STRAIN OF EXTN MUSCLE/FASCIA/TENDON AT L FOREARM, AND NONDISPLACED FX OF LTERAL EPICONDYLE OF L HUMERUS. Work/Leisure: RETIRED. Present symptoms: PATIENT REPORTS HER LEFT ELBOW DOESN'T LOOK THE SAME HER RIGHT. INTERMITTENT MILD MEDIAL LEFT ELBOW. NO L UE NUMBNESS OR TINGLING. NO SWELLING. NO WEAKNESS. NO TIGHTNESS. Present since: NOV 05 2020. Pain Scale: Worst - 1/10 Least - 0/10. Currently: 0/10. Commenced as a result of: I TRIPPED OVER A ROOT STICKING UP WHILE HIKING AND FEL. Symptoms at onset: PAIN LEFT ELBOW. Worse: CERTAIN EX'S CAUSE MORE DISCOMFORT BUT GETTING BETTER. DR. LAZARO OK'D REALLY LIGHT WEIGHTS AND SO NOW THAT IS WHAT SHE IS DOING. Better: TIME. Disturbed sleep: NO. Previous history/Previous treatment: UNREMARKABLE. This episode: NONE. SAW MIRA TODD THEN ONE CONSULT WITH DR. LAZARO. Dizziness: NO. Tinnitis: CHRONIC. Nausea: NO. Shortness of Breath: NO. Difficulty Swollowing: NO. Gait: NORMAL. Accidents: NO. Unexplained weight loss: NO. Imaging: L UE X-RAY AND MRI - HAIRLINE FX OF THE ELBOW AND TORN LIGAMENT PER PATIENT REPORT. PMH/Recent major surgery: OSTEOPOROSIS, HTN, HEARING LOSS, POOR VISION. AGE 19 HAD L HAND TRIGGER FINGER SX. OTHER: NOT CURRENTLY DOING ANY ARM EX'S CURRENTLY. WAITING TO SEE WHAT SHE SHOULD AND SHOULDN'T DO. RESTRICTIONS: NO FOLLOW UP SCHEDULED WITH DR. LAZARO. LEAVING FOR [place] JAN [address] LAZARO SAID TO ONLY LIFT VERY LIGHT WEIGHTS BUT HE DIDN'T SAY FOR HOW LONG. REPORTS HE SAID SHE IS ALLOWED TO DO PLANKS BUT SHE HASN'T TRIED YET. Pt would like to return to her PLOF with her workouts and her outdoor activities. - Pain left elbow 0 Pain Intensity Range: 1 - ROM Elbow: right +5/155 left +/155 Forearm: right/left supination pronation WNL ROM Comments: pt pain with forearm resistive supination - Strength Elbow: right 4+/5 left 4+/5 no pain Forearm: right 4+/5 left 4+/5 some pain Academic Physician: right 25# left 20# Lateral Pinch: right 8# left 8# Strength Comments: right elbow straight 20# left 20# no pain - Sensation Sensation Comments: denies - Quick DASH-Disab of Arm,Shoulder& Hand Quick DASH Score: 11.3629 - Goals Goal:: pt will report no pain greater than 1/10 with use of left UE with all ADls and IADLs by d/c Goal:: pt will demo understanding of UE ergonomics with lifting and wt. bearing to prevent injury during her daily occupations by dc Goal:: pt will demo understanding to initiate with light wt (3#) her exercise routine and gradual increase to her PLOF with her exercises by d/c - Rehabilitation General Assessment: Pt is 8 weeks from DOI demo full elbow ROM enlarged elbow and demo with lateral instability at medial elbow left - limiting pts progress to her PLOF with her daily workouts and IADLs. Pt would benefit from skilled OT services 2-3 visits to ensure good lifting mechanics and UE ergonomics with her daily exercise and IADL tasks. pt demo understanding and agree to POC. Rehabilitation Potential: Excellent - Anticipated Interventions Strengthening, Triggerpoint Release, Modalities, Orthoses, Joint Protection/Energy Conservation, Ergonomic Education, Education re assistive Equipment, Education re Diagnosis - Visit Plan Frequency: 1x/Week Duration: 3 Weeks TEXT: Thank you for the opportunity to evaluate your patient. For Medicare and Medicare HMO plans, please review the plan of care and approve it. It will need to be FAXED BACK to us at [phone] for Medicare purposes. Please let me know if there are questions or concerns regarding this plan of care. Physician Signature: Date:
--- NOTE | 2021-03-10 16:29 | HP.OT.NRP ---
JAKI VIVAS was seen in my office for initial evaluation on 12/31/20. The following Plan of Care was established for this patient: Initial Frequency: 1x/Week Initial Duration: 3 Weeks Anticipated Interventions: Strengthening, Triggerpoint Release, Modalities, Orthoses, Joint Protection/Energy Conservation, Ergonomic Education, Education re assistive Equipment, Education re Diagnosis This patient was last seen in our office 01/07/21. Pertinent comments regarding their Occupational therapy will appear below: pt was seen for 2 OT session to ed pt on exercises with her health and wellness program- pt demo understanding- pt to progress as arnav. with her strengthening. pt d/c at this time. At this point I will be discontinuing this patient from occupational therapy. I would be happy to see this patient again in the future if found appropriate by the physician. Thank you! Karen Hutson, OTR/L, CHT
== END 2021-01-07 19:00 | disposition home or self-care (01) ==
LOC: OT 11:00
PROVIDERS: PCP Family Medicine; Referring Provider Student in an Organized Health Care Education/Training Program; Visit Provider Student in an Organized Health Care Education/Training Program
DX: S53.442D Ulnar collateral ligament sprain of left elbow, subsequent encounter (principal); S56.512D Strain of other extensor muscle, fascia and tendon at forearm level, left arm, subsequent encounter; S42.435D Nondisplaced fracture (avulsion) of lateral epicondyle of left humerus, subsequent encounter for fracture with routine healing
CPT/HCPCS: 97110; 97162; 97166; 97530

== ENCOUNTER → 2021-01-13 08:37 | Outpatient (CLI) | payer MEDICARE, OTHER, SELFPAY ==
[2020-09-03 11:05] VITALS: BMI 22.0
--- NOTE | 2021-01-13 08:39 | BI_ITS ---
MAMMOGRAPHY - BILATERAL SCREENING 3-D TOMOSYNTHESIS REASON FOR EXAM: Female, 75 years old. Screening PERTINENT HISTORY: Grandmother with breast cancer.. TECHNIQUE: 2-D mammograms and 3-D Tomosynthesis of the breast (s) were performed. CAD was performed. COMPARISON: 01/11/2020 FINDINGS: The breast composition is heterogeneously dense that can obscure small breast masses. Scattered benign calcifications are seen. No dense spiculated masses or suspicious microcalcifications are identified. No architectural distortion is identified. There is no skin thickening or retraction. There has been no significant change since the prior study. BI/SCRN MAMM (CAD)W/ESSENCE BILAT IMPRESSION: No mammographic signs of malignancy. Routine yearly mammograms recommended. ASSESSMENT CATEGORY: BIRADS Category 2: Benign. A letter regarding these results will be sent to the patient by the facility within 30 days. FOLLOW UP RECOMMENDATION: Yearly follow up mammogram recommended. (A) Approximately 10% of breast cancers are not detected by mammography. A normal mammogram should not delay biopsy of a clinically suspicious abnormality. Electronically Signed: Narciso Hardin MD at 13:45 EST , Service support ,
== END ==
PROVIDERS: PCP Family Medicine; Referring Provider Obstetrics & Gynecology; Visit Provider Obstetrics & Gynecology
DX: Z12.31 Encounter for screening mammogram for malignant neoplasm of breast (principal)
CPT/HCPCS: 77063; 77067

== ENCOUNTER → 2021-01-21 15:02 | Outpatient (CLI) | payer MEDICARE, OTHER, SELFPAY ==
[2020-01-24 08:36] VITALS: BMI 21.8
[2021-01-21 15:07] VITALS: BP 109/60; PULSE 62; RESP 16; TEMP 35.8; O2SAT 97; BMI 21.4
[2021-01-21] MEDS: DENOSUMAB 60 MG/ML SC (15:12)
== END ==
PROVIDERS: PCP Family Medicine; Referring Provider Internal Medicine Endocrinology, Diabetes & Metabolism; Visit Provider Internal Medicine Endocrinology, Diabetes & Metabolism
DX: M81.0 Age-related osteoporosis without current pathological fracture (principal)
CPT/HCPCS: 96372; J0897

== ENCOUNTER → 2021-07-22 | Outpatient (CLI) | payer MEDICARE, OTHER, SELFPAY ==
[2021-07-22 11:19] VITALS: BP 142/65; PULSE 68; RESP 14; TEMP 36.2; O2SAT 100; BMI 22.2
[2021-07-22] MEDS: DENOSUMAB 60 MG/ML SC (11:21)
== END | disposition home or self-care (01) ==
LOC: MEDOUTP 10:56
PROVIDERS: PCP Family Medicine; Referring Provider Internal Medicine Endocrinology, Diabetes & Metabolism; Visit Provider Internal Medicine Endocrinology, Diabetes & Metabolism
DX: M81.0 Age-related osteoporosis without current pathological fracture (principal)
CPT/HCPCS: 96372; J0897

== ENCOUNTER → 2021-08-14 | Outpatient (CLI) | payer MEDICARE, OTHER, SELFPAY ==
[2021-08-14 10:15] LABS: Absolute Lymphocyte Count 2.17 X10^3/uL (0.83-4.51); Absolute Neutrophil Count 2.8 X10^3/uL (2.0-7.7); Basophil# 0.07 X10^3/uL; Basophil% 1.2 % (0-1); Eosinophil# 0.48 X10^3/uL; Hematocrit 40.7 % (37-47); Hemoglobin 13.8 g/dL (12.0-15.0); Lymphocyte # 2.17 X10^3/ul (0.83-4.51); Lymphocyte % 36.1 % (19-41); Mean Corp Hgb Conc 33.9 g/dL (32-36); Mean Corpuscular Hgb 30.3 pg (27.0-32.0); Mean Corpuscular Volume 89.5 fL (81-99); Mean Platelet Vol. 11.4 fl (6.2-12.0); Monocyte# 0.46 X10^3/uL; Monocyte% 7.7 % (0-10); NRBC Flagged by Analyzer 0 % (0-5); Neutrophil # 2.81 X10^3/uL (2.7-7.7); Neutrophil % 46.7 % (47-70); Platelet Count 264 K/mm3 (150-450); RBC Distribution Width CV 13.5 % (11.6-14.6); RBC Distribution Width SD 44.2 fl (35.1-43.9); Red Blood Count 4.55 M/mm3 (4.2-5.4)
[2021-08-14 10:32] LABS: Vitamin D,25 Hydroxy 65.6 ng/mL
[2021-08-14 10:49] LABS: BUN 20 mg/dL (7-18); EST Glomerular Filtration Rate 87 mL/min (>60); Glucose 100 mg/dL (74-106)
[2021-08-14 10:50] LABS: ALB/GLOB Ratio 1.2 RATIO (0.9-2.4); AST(SGOT) 21 U/L (15-37); Alanine Aminotransfer ALT/SGPT 35 U/L (13-56); Albumin, Serum 3.8 g/dL (3.2-5.0); Alkaline Phosphatase 60 U/L (45-117); Anion Gap 8 (5-15); BUN/Creat Ratio 28.7 RATIO (10-20); Calcium,Total 8.9 mg/dL (8.5-10.1); Chloride 102 mmol/L (98-107); Cholesterol 132 mg/dL (200); Est Glom Filt Rate - Afr Amer 106 mL/min (>60); Globulin 3.3 g/dL (2.2-4.2); High Density Lipoprotein 70 mg/dL; Potassium 3.1 mmol/L (3.5-5.1); Protein, Total 7.1 g/dL (6.4-8.2); Sodium Level 139 mmol/L (136-145); Thyroid Stim Hormone (TSH) 2.28 uIU/mL (0.358-3.74); Triglycerides 70 mg/dL; Very Low Density Lipoprotein 14 mg/dL (5-40)
== END | disposition home or self-care (01) ==
LOC: MFPLAB 08:39
PROVIDERS: PCP Family Medicine; Referring Provider Family Medicine; Visit Provider Family Medicine
DX: I10 Essential (primary) hypertension (principal); E78.5 Hyperlipidemia, unspecified; E03.8 Other specified hypothyroidism; M81.0 Age-related osteoporosis without current pathological fracture
CPT/HCPCS: 36415; 80053; 80061; 82306; 84439; 84443; 85025

== ENCOUNTER → 2021-08-28 | Outpatient (CLI) | payer MEDICARE, OTHER, SELFPAY ==
[2021-08-28 15:16] LABS: Mucous, Urine 0 SEEN /hpf (<or=2+)
[2021-08-28 17:54] LABS: Color, Urine Yellow (Yellow); Glucose, Dipstick Normal (Normal); Ketone-Dipstick Negative (Negative); Leukocyte Esterase-Dipstick Negative /ul (Negative); Nitrite-Dipstick Positive (Negative); Occult Blood-Urine 10 /ul (Negative); Protein-Dipstick Negative (Negative); Urine Bilirubin Dipstick Negative (Negative); Urine Clarity Sl. Cloudy (Clear); Urine Urobilinogen Normal (Normal); Urine pH 6.5 (5.0 - 8.0)
[2021-08-28 18:24] LABS: Bacteria 4+ /hpf (None Seen); Red Blood Cells-Urine 0-5 SEEN /hpf (0-5); Squamous Epithelial Cells - UA 0-5 SEEN /hpf (5-10); White Blood Cells 0-5 SEEN /hpf (0-5)
== END | disposition home or self-care (01) ==
LOC: MFPLAB 15:02
PROVIDERS: PCP Family Medicine; Visit Provider Family Medicine
DX: I10 Essential (primary) hypertension (principal); E03.8 Other specified hypothyroidism
CPT/HCPCS: 81001

== ENCOUNTER → 2021-11-18 | Outpatient (CLI) | payer MEDICARE, OTHER, SELFPAY ==
[2021-11-18 15:53] LABS: Anion Gap 8 (5-15); BUN 13 mg/dL (7-18); BUN/Creat Ratio 17.4 RATIO (10-20); Calcium,Total 9.5 mg/dL (8.5-10.1); Chloride 99 mmol/L (98-107); Creatinine, Serum 0.75 mg/dL (0.55-1.02); EST Glomerular Filtration Rate 81 mL/min (>60); Est Glom Filt Rate - Afr Amer 98 mL/min (>60); Glucose 97 mg/dL (74-106); Potassium 3.1 mmol/L (3.5-5.1); Sodium Level 138 mmol/L (136-145)
== END | disposition home or self-care (01) ==
LOC: MFPLAB 12:08
PROVIDERS: PCP Family Medicine; Referring Provider Family Medicine; Visit Provider Family Medicine
DX: E87.6 Hypokalemia (principal)
CPT/HCPCS: 36415; 80048

== ENCOUNTER 2021-12-25 12:00 | Outpatient (RCR) | payer MEDICARE, OTHER, SELFPAY ==
--- NOTE | 2021-10-20 12:33 | HP.PTEVAL ---
Patient's Visit Information JAKI VIVAS is a 76 year old F referred to Physical Therapy by Dr. Chantal Galaviz MD with a diagnosis of URINARY RETENTION. Date of Evaluation: 10/01/21 Physical Therapist: Sherice Simpson PT, Cert MDT - Visit Plan Frequency: 1-2x /Week Duration: 4-6 Weeks Plan: MANUAL PF THERAPY FOR STRENGTHENING, LENGTHENING/RELAXATION AND ENDURANCE TRAINING. URINARY RETENTION EDUCATION. CONSIDER INTERNAL OR EXTERNAL PF BIOFEEDBACK WITH EQUIPMENT. TRAINING IN COORDINATION OF PELVIC FLOOR MUSCULATURE WITH CORE (TRANSVERSE ABDOMINUS) STRENGTHENING. TRAINING IN ABDOMINAL CAVITY PRESSURE MGMT WITH ADL'S TO DECREASE ANY URINARY LEAKING. - Subjective Work/Leisure: RETIRED. [employer] IN [place]. [employer] IN [place]. 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 Disability: NO. Present symptoms: PATIENT REPORTS SHE IS NOT ABLE TO FULLY EMPTY BLADDER. AFTER HYSTERECTOMY 2018 WENT TO PT AND SHE SAID HER URINE SHOULD FLOW NOT START AND STOP BUT HERS DOES. STATES SHE DID A LOT OF EX' WITH PT ([facility]) 4 YEARS AGO RIGHT AFTER HER HYSTERECTOMY SO SHE ISN'T SURE IF IT HELPED OR NOT. STATES SHE TRIED THE EX'S FOR ABOUT 5 MONTHS THEN STOPPED. CONSULT WITH UROGYN WITH RECOMMENDATION FOR SURGICAL PLACEMENT OF STIMULATOR BUT SHE IS RELUCTANT. OVER THE YEARS THIS WILL BE THE 4TH TIME SHE IS TRYING PT. SHE REPORTS THAT IN THE PAST PT HAS MAINLY CONSISTED OF EXERCISES. SHE DID HAVE BIOFEEDBACK X 1-2 VISITS SHE RE-CALLS. MESH PLACEMENT AFTER HYSTERECTOMY - MESH HAS HELPED THE PROLAPSE BUT NOT THE RETENTION. ON RARE OCCASIONS PATIENT REPORTS SHE HAS SOME LEAKING BUT NOT VERY MUCH AND DOES NOT FEEL LIKE IT IS A MAJOR ISSUE. SOMETIMES WHEN SHE SITS DOWN AFTER URINATING SHE LEAKS A BIT. Present since: PATIENT REALLY THINKS THAT HER BLADDER HASN'T BEEN NORMAL ALL HER LIFE BECAUSE SHE HAS NEVER HAD TO GO OFTEN HER FRIENDS. Pain Scale: N/A. PATIENT DENIES LOW BACK AND PELVIC PAIN. PMH: OSTEOPOROSIS, HTN, HIGH CHOLESTEROL. Coughing/sneezing/straining: DENIES LEAKING. Accidents: NO. Unexplained weight loss: NO. OTHER: CATHERIZE AT NIGHT BEFORE GOING TO BED (250 TO 300 ML) X ~3 YEARS. DOES OK DURING THE DAY. - Objective Sitting/Standing Posture: FAIR. Lordosis: DECREASED. Lateral shift: NO. Relevant shift: N/A. Active Correction of posture: NE. Other Observations: THIS PATIENT AMBULATES INDEP'LY INTO PT WITHOUT ANY GROSS DEVIATIONS NOTED. GAIT AND TRANSFERS ARE INDEP. Sensory deficit: RONN LE LIGHT TOUCH SENSATION IS GROSSLY INTACT AND SYMMETRICAL. ROM deficit: MILD RONN HIP FLEXOR, HS AND GASTROC-SOLEUS COMPLEX TIGHTNESS. Motor deficit: RONN LE'S GROSSLY 5/5 WITH MMT'ING. Dural Signs: NEGATIVE RONN LE'S. Lumbar mvmt loss: flex - NIL. ext - MIN. R SG - MIN. L SG - MIN. PATIENT DENIES PAIN WITH LUMBAR ROM TESTING ALL PLANES. Core strength: FAIR. Palpation: INTERNAL PELVIC FLOOR PALPATION REVEALS 3/5 PF STRENGTH BUT TIGHTNESS AND DIFFICULTY RELAXING PELVIC FLOOR. NO PF TENDERNSS. FAIR ENDURANCE. - Goals Goal 1:: DELAY VOIDING FOR 60 MINUTES Goal Time Frame: 4-6 Weeks Goal 2:: INCREASE PF MUSCLE GRADE TO 5/5 Goal Time Frame: 4-6 Weeks Goal 3:: PATIENT WILL DEMONSTRATE 10 CONSISTENT AND CONSECUTIVE 10 SEC PFM CONTRACTIONS Goal Time Frame: 4-6 Weeks Goal 4:: CONSISTENTLY DECREASE VOLUME OF SECOND VOID DURING DOUBLE VOIDING TO LESS THAN 100 ML. Goal Time Frame: 4-6 Weeks Goal 5:: FLUID INTAKE OF 1/2 BODY WEIGHT IN OZ'S PER DAY WITH 2/3 BEING H20. Goal Time Frame: 4-6 Weeks - Anticipated Interventions Patient/Client Instruction: Educate patient on: Condition, Plan of Care, Risk Factors For the Purpose of:: To improve self management Therapeutic Exercise to Include: Strength training, Endurance training, Coordination, Body mechanics, Neuromotor development, Biofeedback, Dynamic Lumbar Stabilization For the Purpose of:: To improve muscle performance and motor function, To improve endurance, To improve ability to perform tasks related to life management Manual Therapy Techniques to Include: Other Comment: BIOFEEDBACK For the Purpose of:: To improve muscle performance and motor function Biofeedback: Yes For the Purpose of:: To improve muscle performance and motor function Thank you for the opportunity to evaluate your patient. For Medicare and Medicare HMO plans, please review the plan of care and approve it. It will need to be FAXED BACK to us at [phone] for Medicare purposes. For Medicare only, by signing this I certify the plan of care. Please let me know if there are questions or concerns regarding this plan of care. Physician Signature: Date:
--- NOTE | 2021-12-25 13:38 | HP.PTDCSUM_ITS ---
It has been my pleasure to treat JAKI VIVAS referred by Dr. Chantal Galaviz MD, with the diagnosis of URINARY RETENTION for a total of 9 visit(s). Discharge Date: Please see the following information for a summary of their discharge status. Subjective: PATIENT REPORTS SHE HAS BEEN VERY CONSISTANT WITH HER HEP SINCE LAST VISIT. PATIENT REPORTS SHE DID HER BLADDER DIARY AGAIN. SHE REPORTS SHE USED SELF CATHERIZATION AFTER EA VOID FOR 2 DAYS AND SHE REPORTS HER BODY REALLY FELT MUCH BETTER DOING THIS. SHE REPORTS SOMETIMES BEING ABLE TO GET MORE URINE OUT WITH CATH AFTER FIRST VOID. PATIENT REPORTS SHE PLANS TO CONTINUE THE EX PROGRAM AT LEAST UNTIL PHYSICIAN FOLLOW UP. % Improvement: 40 Objective/Function: PATIENT IS INDEP WITH A HEP NOW AND DOES NOT HAVE TENDERNESS WITH PALPATION OF THE PELVIC FLOOR TODAY. THERE IS MILD PEVIC FLOOR TIGHTNESS. PATIENT DEMO'S 6-7 SEC PF ENDURANCE GRADED 4/5 WITH INTERNAL VAGINAL PELVIC TESTING TODAY X 4 REPS BEFORE DEMINISHING STRENGTH WHICH IS AN IMPROVEMENT SINCE INITIAL EVAL. PATIENT DEMONSTRATED A GOOD UNDERSTANDING OF ALL EX'S AFTER INSTRU CTION GIVEN TODAY. SHE IS APPROPRIATE FOR DISCHARGE TO [facility] AT THIS TIME AND SHE IS AGREEABLE. THIS PT STRONGLY ENCOURAGED PATIENT TO FOLLOW UP SOON POSSIBLE WITH UROLOGIST ABOUT ONGOING RETENTION PROBLEMS AND ON-GOING NEED FOR CATHERIZATION. PATIENT AGREEABLE. Goal 1:: DELAY VOIDING FOR 60 MINUTES Goal Progress: Goal Met Goal 2:: INCREASE PF MUSCLE GRADE TO 5/5 Goal Progress: Progressing Goal 3:: PATIENT WILL DEMONSTRATE 10 CONSISTENT AND CONSECUTIVE 10 SEC PFM CON TRACTIONS Goal Progress: Progressing Goal 4:: CONSISTENTLY DECREASE VOLUME OF SECOND VOID DURING DOUBLE VOIDING TO LESS THAN 100 ML. Goal Progress: Not Progressing Goal 5:: FLUID INTAKE OF 1/2 BODY WEIGHT IN OZ'S PER DAY WITH 2/3 BEING H20. Goal Progress: Goal Met Plan: D/C TO HEP AND PHYSICIAN FOLLOW UP. PATIENT AGREEABLE. If there are questions or concerns regarding this patient's physical therapy, please feel free to call me at [phone]. Thank you for the referral of this patient. Sincerely, Sherice Simpson, PT, Cert MDT
== END 2021-12-25 19:00 | disposition home or self-care (01) ==
LOC: PT 12:00
PROVIDERS: PCP Family Medicine; Referring Provider Obstetrics & Gynecology; Visit Provider Obstetrics & Gynecology
DX: R33.9 Retention of urine, unspecified (principal)
CPT/HCPCS: 97140; 97162; 97530

== ENCOUNTER → 2022-01-08 | Outpatient (CLI) | payer MEDICARE, OTHER, SELFPAY ==
[2022-01-08 10:20] LABS: Potassium 3.5 mmol/L (3.5-5.1)
== END | disposition home or self-care (01) ==
LOC: MFPLAB 09:12
PROVIDERS: PCP Family Medicine; Referring Provider Family Medicine; Visit Provider Family Medicine
DX: E87.6 Hypokalemia (principal)
CPT/HCPCS: 36415; 84132

== ENCOUNTER → 2022-01-14 | Outpatient (CLI) | payer MEDICARE, OTHER, SELFPAY ==
--- NOTE | 2022-01-14 07:20 | BI_ITS ---
MAMMOGRAPHY - BILATERAL SCREENING REASON FOR EXAM: Female, 76 years old. Routine annual screening examination. PERTINENT HISTORY: Grandmother with breast cancer. TECHNIQUE: Digital bilateral breast essence (3D mammographic acquisition) in the CC and MLO projections. 2-D mediolateral oblique (MLO) and craniocaudad (CC) views of both breasts were obtained. CAD: Full Field Digital Mammography with Computer Added Detection was performed. COMPARISON: 01/13/2021, 01/11/2020. FINDINGS: Breast Composition: The breasts are heterogeneously dense, which may obscure small masses. There are no dominant masses or suspicious calcifications. No other significant abnormalities are identified. There has been no significant change since the prior study. BI/SCRN MAMM (CAD)W/ESSENCE BILAT IMPRESSION: Stable bilateral screening mammogram. Yearly follow-up mammogram recommended. (A) ASSESSMENT CATEGORY: BIRADS Category 1: Negative. A letter regarding these results will be sent to the patient by the facility within 30 days. Approximately 10% of breast cancers are not detected by mammography. A normal mammogram should not delay biopsy of a clinically suspicious abnormality. Electronically Signed: Matthew Nunez, at 13:10 EST ,
== END | disposition home or self-care (01) ==
LOC: OPBI 07:19
PROVIDERS: PCP Family Medicine; Visit Provider Obstetrics & Gynecology
DX: Z12.31 Encounter for screening mammogram for malignant neoplasm of breast (principal); Z80.3 Family history of malignant neoplasm of breast
CPT/HCPCS: 77063; 77067

== ENCOUNTER → 2022-01-14 | Outpatient (CLI) | payer MEDICARE, OTHER, SELFPAY ==
[2022-01-14 07:53] VITALS: BP 139/67; PULSE 60; RESP 16; O2SAT 99
[2022-01-14] MEDS: DENOSUMAB 60 MG/ML SC (07:55)
== END | disposition home or self-care (01) ==
LOC: MEDOUTP 07:44
PROVIDERS: PCP Family Medicine; Referring Provider Internal Medicine Endocrinology, Diabetes & Metabolism; Visit Provider Internal Medicine Endocrinology, Diabetes & Metabolism
DX: Z12.31 Encounter for screening mammogram for malignant neoplasm of breast (principal); M81.0 Age-related osteoporosis without current pathological fracture
CPT/HCPCS: 77063; 77067; 96372; J0897

== ENCOUNTER → 2022-07-14 | Outpatient (CLI) | payer MEDICARE, OTHER, SELFPAY ==
--- NOTE | 2022-07-15 05:41 | PFTCOMP ---
COMPLETE PULMONARY FUNCTION TEST INTERPRETATION Brief HPI: Patient is a 76-year-old female, currently under the care of Dr. Hernandez, who presents to [facility] for complete pulmonary function tests secondary to diagnosis of cough. Respiratory therapist reports good effort and reproducible results. Interpretation: Forced expiration spirometry shows a mild large airways obstructive ventilatory defect with an FEV1 of 99% predicted. There is a significant bronchodilator response in FEV1 by strict ATS criteria. Spirograms are of good quality and plateau slowly, indicating slowly emptying areas of the lungs. The respiratory flow volume loop shows decreased expiratory flow rates at all lung volumes consistent with airway obstruction. Lung volumes by body plethysmography show a normal total lung capacity at 4.2 L, 111% predicted. All other lung volumes are within normal limits. Diffusion capacity by carbon monoxide is normal at 76% predicted. The airway resistance is elevated. No previous pulmonary function tests were available for review. Impression: Partially reversible mild large airways obstructive ventilatory defect
== END | disposition home or self-care (01) ==
PROVIDERS: PCP Family Medicine; Referring Provider Family Medicine; Visit Provider Family Medicine
DX: R05.9 Cough, unspecified (principal)
CPT/HCPCS: 94060; 94726; 94729

== ENCOUNTER 2022-07-15 13:58 | Outpatient (CLI) | payer MEDICARE, OTHER, SELFPAY ==
[2022-07-15 14:03] VITALS: BP 117/65; PULSE 63; RESP 16; TEMP 35.8; O2SAT 100
[2022-07-15] MEDS: DENOSUMAB 60 MG/ML SC (14:06)
== END 2022-07-15 13:59 | disposition home or self-care (01) ==
LOC: MEDOUTP 13:59
PROVIDERS: PCP Family Medicine; Referring Provider Internal Medicine Endocrinology, Diabetes & Metabolism; Visit Provider Internal Medicine Endocrinology, Diabetes & Metabolism
DX: M81.0 Age-related osteoporosis without current pathological fracture (principal)
CPT/HCPCS: 96372; J0897

== ENCOUNTER → 2022-08-10 | Outpatient (CLI) | payer MEDICARE, OTHER, SELFPAY ==
[2022-08-10 10:30] LABS: AST(SGOT) 26 U/L (15-37); Alanine Aminotransfer ALT/SGPT 33 U/L (13-56); Albumin, Serum 3.9 g/dL (3.2-5.0); Alkaline Phosphatase 65 U/L (45-117); Anion Gap 6 (5-15); BUN 17 mg/dL (7-18); BUN/Creat Ratio 23.9 RATIO (10-20); Calcium,Total 9.5 mg/dL (8.5-10.1); Chloride 103 mmol/L (98-107); Cholesterol 145 mg/dL (200); Creatinine, Serum 0.71 mg/dL (0.55-1.02); EST Glomerular Filtration Rate 85 mL/min (>60); Est Glom Filt Rate - Afr Amer 103 mL/min (>60); Globulin 3.8 g/dL (2.2-4.2); Glucose 108 mg/dL (74-106); High Density Lipoprotein 70 mg/dL; Potassium 3.6 mmol/L (3.5-5.1); Protein, Total 7.7 g/dL (6.4-8.2); Sodium Level 140 mmol/L (136-145); Triglycerides 58 mg/dL; Very Low Density Lipoprotein 12 mg/dL (5-40); Vitamin B12 327 pg/mL (211-911)
[2022-08-11 14:09] LABS: Vitamin D 1,25-Dihydroxy 29.4 pg/mL (24.8-81.5)
== END | disposition home or self-care (01) ==
PROVIDERS: PCP Family Medicine; Referring Provider Family Medicine; Visit Provider Family Medicine
DX: K21.9 Gastro-esophageal reflux disease without esophagitis (principal); E78.5 Hyperlipidemia, unspecified; I10 Essential (primary) hypertension; E03.8 Other specified hypothyroidism
CPT/HCPCS: 36415; 80053; 80061; 82043; 82607; 82652; 84439; 84443

== ENCOUNTER → 2022-08-12 | Outpatient (CLI) | payer MEDICARE, OTHER, SELFPAY ==
[2022-08-12 16:38] LABS: Microalbumin,Random Urine 5.5 mg/L (NO RANGE EST.)
== END | disposition home or self-care (01) ==
LOC: LABSPEC 14:07
PROVIDERS: PCP Family Medicine; Visit Provider Family Medicine
DX: I10 Essential (primary) hypertension (principal)
CPT/HCPCS: 82043

== ENCOUNTER → 2022-09-21 | Outpatient (CLI) | payer MEDICARE, OTHER, SELFPAY ==
[2022-09-21 18:36] LABS: Thyroid Stim Hormone (TSH) 0.79 uIU/mL (0.358-3.74)
== END | disposition home or self-care (01) ==
LOC: MFPLAB 14:59
PROVIDERS: PCP Family Medicine; Visit Provider Family Medicine
DX: E03.8 Other specified hypothyroidism (principal)
CPT/HCPCS: 36415; 84443

== ENCOUNTER → 2022-11-20 | Outpatient (CLI) | payer MEDICARE, OTHER, SELFPAY ==
[2022-11-20 17:58] LABS: Vitamin B12 > 2000 pg/mL (211-911); Vitamin D,25 Hydroxy 56.8 ng/mL
== END | disposition home or self-care (01) ==
LOC: MFPLAB 14:26
PROVIDERS: PCP Family Medicine; Visit Provider Family Medicine
DX: E53.8 Deficiency of other specified B group vitamins (principal); E55.9 Vitamin D deficiency, unspecified
CPT/HCPCS: 36415; 82306; 82607

== ENCOUNTER → 2023-01-18 | Outpatient (CLI) | payer MEDICARE, OTHER, SELFPAY ==
--- NOTE | 2023-01-18 12:59 | BI_ITS ---
MAMMOGRAPHY - BILATERAL SCREENING REASON FOR EXAM: Female, 77 years old. Routine annual screening examination. PERTINENT HISTORY: Grandmother with breast cancer. TECHNIQUE: Digital bilateral breast essence (3D mammographic acquisition) in the CC and MLO projections. 2-D mediolateral oblique (MLO) and craniocaudad (CC) views of both breasts were obtained. CAD: Full Field Digital Mammography with Computer Added Detection was performed. COMPARISON: Comparison is made with prior study January 14, 2022 and January 13, 2021. FINDINGS: Breast Composition: The breasts are extremely dense, which lowers the sensitivity of mammography. There are no dominant masses or suspicious calcifications. No other significant abnormalities are identified. There has been no significant change since the prior study. BI/SCRN MAMM (CAD)W/ESSENCE BILAT IMPRESSION: Stable bilateral screening mammogram. Yearly follow-up mammogram recommended. (A) ASSESSMENT CATEGORY: BIRADS Category 1: Negative. A letter regarding these results will be sent to the patient by the facility within 30 days. Approximately 10% of breast cancers are not detected by mammography. A normal mammogram should not delay biopsy of a clinically suspicious abnormality. [id number] Electronically Signed: Camron Parks MD at 13:29 EST ,
== END | disposition home or self-care (01) ==
LOC: OPBI 12:58
PROVIDERS: PCP Family Medicine; Referring Provider Obstetrics & Gynecology; Visit Provider Obstetrics & Gynecology
DX: Z12.31 Encounter for screening mammogram for malignant neoplasm of breast (principal)
CPT/HCPCS: 77063; 77067

== ENCOUNTER 2023-01-19 12:58 | Outpatient (CLI) | payer MEDICARE, OTHER, SELFPAY ==
[2023-01-19 13:16] VITALS: BP 121/60; PULSE 55; RESP 16; TEMP 35.9; O2SAT 97; BMI 22.8
[2023-01-19] MEDS: DENOSUMAB 60 MG/ML SC (13:17)
== END 2023-01-19 12:59 | disposition home or self-care (01) ==
LOC: MEDOUTP 12:59
PROVIDERS: PCP Family Medicine; Referring Provider Internal Medicine Endocrinology, Diabetes & Metabolism; Visit Provider Internal Medicine Endocrinology, Diabetes & Metabolism
DX: M81.0 Age-related osteoporosis without current pathological fracture (principal)
CPT/HCPCS: 96372; J0897

== ENCOUNTER → 2023-07-20 | Outpatient (CLI) | payer MEDICARE, OTHER, SELFPAY ==
[2023-07-20 10:17] LABS: Absolute Lymphocyte Count 2.19 X10^3/uL (0.83-4.51); Absolute Neutrophil Count 3.5 X10^3/uL (2.0-7.7); Basophil# 0.06 X10^3/uL; Basophil% 0.9 % (0-1); Eosinophils% 3.1 % (0-5); Hematocrit 40.5 % (37-47); Hemoglobin 13.7 g/dL (12.0-15.0); Lymphocyte # 2.19 X10^3/ul (0.83-4.51); Lymphocyte % 33.6 % (19-41); Mean Corp Hgb Conc 33.8 g/dL (32-36); Mean Corpuscular Hgb 29.8 pg (27.0-32.0); Mean Platelet Vol. 11.8 fl (6.2-12.0); Monocyte# 0.56 X10^3/uL; Monocyte% 8.6 % (0-10); NRBC Flagged by Analyzer 0 % (0-5); Neutrophil # 3.51 X10^3/uL (2.7-7.7); Neutrophil % 53.8 % (47-70); Platelet Count 249 K/mm3 (150-450); RBC Distribution Width CV 13.9 % (11.6-14.6); RBC Distribution Width SD 44.8 fl (35.1-43.9); White Blood Count 6.5 K/mm3 (4.4-11.0)
[2023-07-20 11:00] LABS: ALB/GLOB Ratio 1.1 RATIO (0.9-2.4); AST(SGOT) 23 U/L (15-37); Alanine Aminotransfer ALT/SGPT 28 U/L (13-56); Albumin, Serum 3.8 g/dL (3.2-5.0); Alkaline Phosphatase 67 U/L (45-117); Anion Gap 10 (5-15); BUN 21 mg/dL (7-18); BUN/Creat Ratio 32.9 RATIO (10-20); Calcium,Total 9.6 mg/dL (8.5-10.1); Chloride 99 mmol/L (98-107); Cholesterol 131 mg/dL (200); Creatinine, Serum 0.64 mg/dL (0.55-1.02); EST Glomerular Filtration Rate 96 mL/min (>60); Est Glom Filt Rate - Afr Amer 116 mL/min (>60); Free T4 1.32 ng/dL (0.76-1.46); Globulin 3.4 g/dL (2.2-4.2); Glucose 106 mg/dL (74-106); High Density Lipoprotein 68 mg/dL; Potassium 3.2 mmol/L (3.5-5.1); Protein, Total 7.2 g/dL (6.4-8.2); Sodium Level 138 mmol/L (136-145); Thyroid Stim Hormone (TSH) 1.46 uIU/mL (0.358-3.74); Triglycerides 51 mg/dL; Very Low Density Lipoprotein 10 mg/dL (5-40)
[2023-07-20 12:09] LABS: Vitamin D,25 Hydroxy 73.1 ng/mL
== END | disposition home or self-care (01) ==
LOC: MFPLAB 08:36
PROVIDERS: Visit Provider Family Medicine
DX: K21.9 Gastro-esophageal reflux disease without esophagitis (principal); I10 Essential (primary) hypertension; E03.9 Hypothyroidism, unspecified; E78.5 Hyperlipidemia, unspecified; L65.9 Nonscarring hair loss, unspecified
CPT/HCPCS: 36415; 80053; 80061; 82306; 84439; 84443; 85025

== ENCOUNTER → 2023-08-31 | Outpatient (CLI) | payer MEDICARE, OTHER, SELFPAY ==
[2023-08-31 17:22] LABS: Hemoglobin A1c 6.1 % (3.8-5.6)
== END | disposition home or self-care (01) ==
LOC: LAB 15:23
PROVIDERS: PCP Family Medicine; Referring Provider Internal Medicine Cardiovascular Disease; Visit Provider Internal Medicine Cardiovascular Disease
DX: E11.9 Type 2 diabetes mellitus without complications (principal)
CPT/HCPCS: 36415; 83036

== ENCOUNTER → 2023-10-01 | Outpatient (CLI) | payer MEDICARE, OTHER, SELFPAY ==
[2023-10-01 19:50] LABS: Anion Gap 5 (5-15); BUN 17 mg/dL (7-18); BUN/Creat Ratio 24.8 RATIO (10-20); Calcium,Total 9.1 mg/dL (8.5-10.1); Chloride 109 mmol/L (98-107); Creatinine, Serum 0.69 mg/dL (0.55-1.02); EST Glomerular Filtration Rate 89 mL/min (>60); Est Glom Filt Rate - Afr Amer 107 mL/min (>60); Glucose 91 mg/dL (74-106); Potassium 4.2 mmol/L (3.5-5.1); Sodium Level 142 mmol/L (136-145)
== END | disposition home or self-care (01) ==
LOC: BIMLAB 14:52
PROVIDERS: PCP Internal Medicine; Referring Provider Internal Medicine; Visit Provider Internal Medicine
DX: R73.01 Impaired fasting glucose (principal)
CPT/HCPCS: 36415; 80048

== ENCOUNTER → 2024-01-24 | Outpatient (CLI) | payer MEDICARE, OTHER, SELFPAY | END | disposition home or self-care (01) | LOC: OPBI 13:28 | PROVIDERS: PCP Internal Medicine; Referring Provider Obstetrics & Gynecology; Visit Provider Obstetrics & Gynecology | DX: Z12.31 Encounter for screening mammogram for malignant neoplasm of breast (principal) | CPT/HCPCS: 77063; 77067 ==

== ENCOUNTER → 2024-09-11 | Outpatient (CLI) | payer MEDICARE, OTHER, SELFPAY ==
[2024-09-11 08:07] LABS: Hematocrit 40.5 % (37-47); Hemoglobin 13.5 g/dL (12.0-15.0); Immature Granulocytes Count 0.010 X10^3/uL (0.0-0.0); Mean Corp Hgb Conc 33.3 g/dL (32-36); Mean Corpuscular Volume 90.6 fL (81-99); Mean Platelet Vol. 11.2 fl (6.2-12.0); NRBC Flagged by Analyzer 0 % (0-5); Platelet Count 271 K/mm3 (150-450); RBC Distribution Width CV 12.8 % (11.6-14.6); RBC Distribution Width SD 42.5 fl (35.1-43.9); Red Blood Count 4.47 M/mm3 (4.2-5.4); White Blood Count 6.5 K/mm3 (4.4-11.0)
[2024-09-11 09:04] LABS: AST(SGOT) 26 U/L (<=31); Alanine Aminotransfer ALT/SGPT 23 U/L (<=34); Albumin, Serum 4.4 g/dL (3.4-4.8); Alkaline Phosphatase 65 U/L (35-104); Anion Gap 12 (5-15); BUN 21 mg/dL (4-19); BUN/Creat Ratio 29.4 RATIO (10-20); Calcium,Total 9.6 mg/dL (7.6-11.0); Carbon Dioxide 26.0 mmol/L (21.0-32.0); Chloride 104 mmol/L (98-108); Globulin 2.5 g/dL (2.2-4.2); Glucose 104 mg/dL (70-99); Potassium 4.3 mmol/L (3.3-5.1)
[2024-09-11 09:06] LABS: Vitamin D,25 Hydroxy 44.4 ng/mL (30-100)
== END | disposition home or self-care (01) ==
LOC: LAB 07:28
PROVIDERS: PCP Internal Medicine; Referring Provider Internal Medicine; Visit Provider Internal Medicine
DX: I10 Essential (primary) hypertension (principal); R73.03 Prediabetes; M81.0 Age-related osteoporosis without current pathological fracture
CPT/HCPCS: 36415; 80053; 82306; 83036; 85025

== ENCOUNTER → 2024-11-16 | Outpatient (CLI) | payer MEDICARE, OTHER, SELFPAY ==
[2024-11-16 11:17] LABS: Hematocrit 39.1 % (37-47); Hemoglobin 13.5 g/dL (12.0-15.0); Immature Granulocytes Count 0.020 X10^3/uL (0.0-0.0); Mean Corp Hgb Conc 34.5 g/dL (32-36); Mean Corpuscular Volume 87.3 fL (81-99); Mean Platelet Vol. 11.2 fl (6.2-12.0); NRBC Flagged by Analyzer 0 % (0-5); Platelet Count 285 K/mm3 (150-450); RBC Distribution Width CV 13.9 % (11.6-14.6); RBC Distribution Width SD 44.3 fl (35.1-43.9); Red Blood Count 4.48 M/mm3 (4.2-5.4); White Blood Count 6.8 K/mm3 (4.4-11.0)
[2024-11-16 12:05] LABS: AST(SGOT) 22 U/L (<=31); Alanine Aminotransfer ALT/SGPT 20 U/L (<=34); Albumin, Serum 4.6 g/dL (3.4-4.8); Alkaline Phosphatase 56 U/L (35-104); Anion Gap 12 (5-15); BUN 23 mg/dL (4-19); BUN/Creat Ratio 34.6 RATIO (10-20); Bilirubin, Direct 0.22 mg/dL (0.00-0.30); Calcium,Total 9.4 mg/dL (7.6-11.0); Carbon Dioxide 25.4 mmol/L (21.0-32.0); Chloride 102 mmol/L (98-108); Cholesterol 128 mg/dL (<=200); Globulin 2.4 g/dL (2.2-4.2); Glucose 103 mg/dL (70-99); Low Density Lipoprotein Calc. 49 mg/dL; Magnesium 2.3 mg/dL (1.5-2.2); Potassium 4.1 mmol/L (3.3-5.1); Triglycerides 65 mg/dL; Very Low Density Lipoprotein 13 mg/dL (5-40); cholesterol:hdl ratio screen 1.95
== END | disposition home or self-care (01) ==
LOC: LAB 10:32
PROVIDERS: PCP Internal Medicine; Referring Provider Internal Medicine Cardiovascular Disease; Visit Provider Internal Medicine Cardiovascular Disease
DX: Z01.810 Encounter for preprocedural cardiovascular examination (principal); Z00.00 Encounter for general adult medical examination without abnormal findings; I10 Essential (primary) hypertension; E78.5 Hyperlipidemia, unspecified
CPT/HCPCS: 36415; 80048; 80061; 80076; 83036; 83735; 85025

== ENCOUNTER → 2025-01-24 | Outpatient (CLI) | payer MEDICARE, OTHER, SELFPAY ==
--- NOTE | 2025-01-24 12:00 | BI_ITS ---
EXAM: SCRN MAMM (CAD)W/ESSENCE BILAT DATE: 01/24/2025 CLINICAL HISTORY: F, Age 79 y/o , SCREENING MAMMOGRAM FOR BREAST CANCER Grandmother with breast cancer. Remote left breast aspiration. TECHNIQUE: Procedure Code: [id number] Modality: MG Procedure: SCRN MAMM (CAD)W/ESSENCE BILAT COMPARISON: Prior exam(s) dated January 24, 2024.. FINDINGS: TISSUE DENSITY: The breasts are extremely dense, which lowers the sensitivity of mammography. Bilateral Breast Mammographic Findings: No significant masses, calcifications or other abnormalities are identified. Stable secretory calcification in the upper-outer aspect of the right breast. No suspicious masses, areas of developing architectural distortion, or suspicious calcifications. There has been no significant interval change. BI/SCRN MAMM (CAD)W/ESSENCE BILAT IMPRESSION: Stable bilateral screening mammogram. OVERALL FINAL ASSESSMENT BI-RADS 2: BENIGN RECOMMENDATION: Routine annual follow-up in 1 Year Additional Recommendation none A letter with findings and recommendations will be mailed to the patient. Reading Location: [place] [id number]
== END | disposition home or self-care (01) ==
LOC: OPBI 11:57
PROVIDERS: PCP Internal Medicine; Referring Provider Obstetrics & Gynecology; Visit Provider Obstetrics & Gynecology
DX: Z12.31 Encounter for screening mammogram for malignant neoplasm of breast (principal)
CPT/HCPCS: 77063; 77067